=== PATIENT | female | born 1955 | race Caucasian/White ===

== ENCOUNTER → 2018-05-07 07:09 | Outpatient (CLI) | payer OTHER, SELFPAY ==
[2018-05-07 07:49] LABS: ALB/GLOB Ratio 0.7 RATIO (0.9-2.4); AST(SGOT) 20 U/L (15-37); Alanine Aminotransfer ALT/SGPT 24 U/L (13-56); Albumin, Serum 3.2 g/dL (3.2-5.0); Alkaline Phosphatase 80 U/L (45-117); Anion Gap 8 (5-15); BUN 17 mg/dL (7-18); BUN/Creat Ratio 16.5 RATIO (10-20); Chloride 104 mmol/L (98-107); Cholesterol 158 mg/dL (200); Creatinine, Serum 1.03 mg/dL (0.55-1.02); EST Glomerular Filtration Rate 57 mL/min (>60); Est Glom Filt Rate - Afr Amer 69 mL/min (>60); Globulin 4.5 g/dL (2.2-4.2); Glucose 152 mg/dL (74-106); High Density Lipoprotein 54 mg/dL; Protein, Total 7.7 g/dL (6.4-8.2); Sodium Level 141 mmol/L (136-145); Triglycerides 136 mg/dL; Very Low Density Lipoprotein 27 mg/dL (5-40)
== END ==
PROVIDERS: Family Provider Preventive Medicine Occupational Medicine; PCP Preventive Medicine Occupational Medicine; Visit Provider Nurse Practitioner Family
DX: I10 Essential (primary) hypertension (principal)
CPT/HCPCS: 36415; 80053; 80061

== ENCOUNTER 2020-09-18 12:47 | Inpatient (IN) | payer MEDICARE, OTHER, SELFPAY ==
[2020-09-18] VITALS (20 sets, daily range): BP systolic 124–152; BP diastolic 52–95; PULSE 65–82; RESP 15–20; TEMP 36.3–37.1; O2SAT 90–95; BMI 43.8; BMI 43.0
--- NOTE | 2020-09-18 13:01 | RAD_ITS ---
STUDY: X-RAY CHEST REASON FOR EXAM: Female, 65 years old. COUGH, AND SOB X2 WEEKS. PRODUCTIVE WITH YELLOW. DENIES PAIN OR DISCOMFORT. TECHNIQUE: Single AP portable view of the chest. COMPARISON: None. FINDINGS: The lungs are clear and expanded. There is no demonstrated pleural abnormality. Normal size heart. Normal mediastinum and kristina. Normal visualized pulmonary arteries. Normal visualized aortic arch and descending thoracic aorta. Normal visualized thoracic spine. Normal visualized ribs, clavicles, and shoulders. There is no demonstrated abnormality of the visualized soft tissue structures of the upper abdomen. RAD/Chest 1 View (Portable) IMPRESSION: Normal x-ray examination of the chest. Electronically Signed: Jordin Luo MD at 14:08 EST Tel , Service support ,
--- NOTE | 2020-09-18 13:01 | EKG12_ITS ---
Test Reason : SOB Blood Pressure : / mmHG Vent. Rate : 070 BPM Atrial Rate : 070 BPM P-R Int : 156 ms QRS Dur : 076 ms QT Int : 394 ms P-R-T Axes : 045 -09 064 degrees QTc Int : 425 ms Normal sinus rhythm Normal ECG Confirmed by BRENDAN HAGEN, DOMINGO ([id number]), editor farm journal LINDA ARGUETA ([id number]) on 09/24/2020 9:23:13 AM Referred By: LIT Confirmed By:JYOTI CARDONA MD
--- NOTE | 2020-09-18 13:10 | ED.VIS.GEN ---
History of Present Illness Chief Complaint: Shortness of Breath Informant: Patient Narrative: Patient is a 65-year-old female who presents to the emergency department for cough, shortness of breath. Her symptoms have been present over the past 2 weeks. She feels like it is progressively getting worse. She does have a pulse oximeter at home and states has been from 84 to 91% on room air. She does not wear oxygen at baseline. She does have history of asthma and has been using her inhalers. She denies any history of COPD or CHF. She denies fevers or chills. No known sick contacts. Her lives with her and has not had any symptoms. She denies any leg swelling or calf pain. No history of heart attacks or DVT/PE. No vomiting or diarrhea. Her cough has been productive of yellow sputum. She denies a smoking history. No chest pain associated with this. Past Medical History - Allergies and Home Meds Allergies/Adverse Reactions: Allergies DUST MITES Allergy (Uncoded 09/18/20 12:50) Other Primary Care Physician: Efra Ramirez DO [COURTESY STAFF PHYSICIAN] - Prior records reviewed: Yes Past Medical History: - - Asthma, hypertension, borderline diabetic Surgical History: noncontributory Smoking Status: Never smoker Review of Systems All systems negative except as indicated General: Denies: Chills, Fever, Sweats Eyes: Denies: Visual changes - bilaterally, Diplopia ENT: Denies: Rhinorrhea, Sore throat Cardiovascular: Denies: Chest pain, Palpitations Respiratory: Reports: Dyspnea, Cough, Sputum, Dyspnea on exertion, Paroxysmal nocturnal dyspnea Gastrointestinal: Denies: Abdominal pain, Nausea, Vomiting, Diarrhea, Melena, Hematochezia Genitourinary: Denies: Dysuria, Hematuria, Frequency Musculoskeletal: Denies: Back pain, Extremity Pain Skin: Denies: Rash, Wounds Neurological: Denies: Headache, Weakness, Numbness Physical Exam Vital Signs/Narrative: Vital Signs Temp Pulse Resp BP Pulse Ox 09/18/20 12:50 97.3 F L 71 20 H 150/88 H 90 09/18/20 12:47 97.3 F L 71 20 H 150/88 H 90 General: Well nourished, Well developed, No Acute Distress Head: Normocephalic, Atraumatic Eyes: Perrl, EOMI ENT: Moist mucous membranes, No rhinorrhea Neck: Supple, Nontender Cardiovascular: Regular rate, Regular rhythm, No murmurs Respiratory: No distress, Chest nontender, Rhonchi, Wheezing. Negative for: Retractions Abdomen: Soft, Nontender, Nondistended, Normal bowel sounds Back: Nontender, Normal Inspection Extremities: Nontender, No edema. Negative for: Calf Tenderness Skin: Normal color, No rash Neurological: Alert, Oriented x3, Normal Strength, Normal Sensation Psychological: Normal affect, Normal Mood Diagnostic/Tx/Re-eval Chest X-Ray - ED: - - Single view portable chest x-ray interpreted by myself. No evidence of consolidation. No pleural effusions. Normal cardiac silhouette. Normal mediastinum. No acute cardiopulmonary process. Agree with radiologist interpretation. - EKG Initial EKG Interpretation: - - Rate of 70 bpm and normal sinus rhythm. Normal intervals. Normal axis. No ST elevations or depressions. No T wave abnormalities. - Medical Decision Making Patient presents to the emergency department for shortness of breath and cough. Upon arrival to the emergency department she is satting 90% on room air and has increased work of breathing. She is able to catch her breath when sitting down. She is requiring supplemental oxygen. Basic lab work, chest x-ray, coronavirus swab and EKG being obtained. Patient's work-up did not reveal any significant acute abnormality. BNP within normal limits. Negative troponin. No significant elevation of white blood cell count. Covid antigen test was negative. X-ray was negative. CT scan was performed which did not show any signs of PE or consolidation. We did trial a DuoNeb breathing treatment but even despite after this she was still satting 90% on 3 L of supplemental oxygen just sitting in bed. She has been desaturating down to the 84s I do believe she will require further evaluation and management. Initially hold off on giving steroids as she is a diabetic. Will defer to hospitalist for this. Will trial a dose of magnesium as she does have wheezing and will try to break this. Patient otherwise has been stable throughout ED stay. She is agreeable staying in the hospital at this time. ED Disposition - Plan for ED Patient: Disposition: Acute Care [facility] Diagnosis: Wheezing, Hypoxia, Bronchitis Referrals: Efra Ramirez DO [COURTESY STAFF PHYSICIAN] -
[2020-09-18 13:31] LABS: Basophil# 0.05 X10^3/uL; Basophil% 0.6 % (0-1); Eosinophil# 0.79 X10^3/uL; Hematocrit 49.9 % (37-47); Lymphocyte % 13.7 % (19-41); Mean Corp Hgb Conc 32.1 g/dL (32-36); Mean Corpuscular Hgb 30.1 pg (27.0-32.0); Mean Corpuscular Volume 93.8 fL (81-99); Mean Platelet Vol. 10.5 fl (6.2-12.0); Monocyte# 0.72 X10^3/uL; Monocyte% 8.2 % (0-10); NRBC Flagged by Analyzer 0 % (0-5); Neutrophil # 5.97 X10^3/uL (2.7-7.7); Platelet Count 296 K/mm3 (150-450); RBC Distribution Width CV 13.6 % (11.6-14.6); RBC Distribution Width SD 46.6 fl (35.1-43.9); Red Blood Count 5.32 M/mm3 (4.2-5.4); White Blood Count 8.8 K/mm3 (4.4-11.0)
[2020-09-18 13:48] LABS: ALB/GLOB Ratio 0.6 RATIO (0.9-2.4); AST(SGOT) 17 U/L (15-37); Alanine Aminotransfer ALT/SGPT 21 U/L (13-56); Albumin, Serum 3.4 g/dL (3.2-5.0); Alkaline Phosphatase 86 U/L (45-117); Anion Gap 6 (5-15); BUN 15 mg/dL (7-18); BUN/Creat Ratio 14.6 RATIO (10-20); Calcium,Total 8.7 mg/dL (8.5-10.1); Chloride 105 mmol/L (98-107); Creatinine, Serum 1.03 mg/dL (0.55-1.02); EST Glomerular Filtration Rate 57 mL/min (>60); Est Glom Filt Rate - Afr Amer 69 mL/min (>60); Estimated Creatinine Clearance 51.54 ml/min; Globulin 5.3 g/dL (2.2-4.2); Glucose 111 mg/dL (74-106); Potassium 3.8 mmol/L (3.5-5.1); Protein, Total 8.7 g/dL (6.4-8.2); Sodium Level 141 mmol/L (136-145)
[2020-09-18 13:50] LABS: BNP,B-Type NATRIURETIC PEPTIDE 12.7 pg/mL (0-100)
[2020-09-18 14:10] LABS: Lactic Acid 1.4 mmol/L (0.4-1.9)
--- NOTE | 2020-09-18 15:02 | CT_ITS ---
STUDY: CTA CHEST REASON FOR EXAM: Female, 65 years old. SOB WITH COUGH X 2 WEEKS. HX OF HTN RADIATION DOSAGE (If Supplied By Facility): CTDIvol = ( 18.57 ) mGy, DLP = ( 573.27 ) mGycm TECHNIQUE: The examination was performed with the intravenous administration of IV 100mL Isovue-370. Post-processing of the angiographic images was performed, with multiplanar reformation and 3D reconstruction. Individualized dose optimization techniques were used for this CT. COMPARISON: None. FINDINGS: Normal enhancement of the main pulmonary artery and right and left pulmonary arteries. Normal enhancement of the bilateral peripheral pulmonary arteries. There is no demonstrated pulmonary embolism. Normal thoracic aorta and visualized great vessels. There is no demonstrated aortic dissection. Normal heart and pericardium. Normal mediastinum. Normal hilar regions. Normal visualized trachea and bronchi. The lungs are well expanded. Mild left apical scarring. Normal pleura. Normal chest wall structures. Normal osseous structures. Normal visualized upper abdomen. CT/CTA Chest W/WO Contrast IMPRESSION: Normal CTA chest examination, without a demonstrated pulmonary embolism or arterial dissection. Electronically Signed: Jordin Luo MD at 15:36 EST Tel , Service support ,
[2020-09-18] MEDS: Ipratropium/Albuterol Sulfate 3 ML AMPUL.NEB INHALATION ×3 (15:50→23:31)
--- NOTE | 2020-09-18 17:03 | PCM.HP.STD ---
Problem List (1) HTN (hypertension) Status: Chronic (2) Depression Status: Chronic (3) Diabetes mellitus Status: Chronic Qualifiers: Diabetes mellitus type: type 2 (4) Wheezing Status: Acute (5) Hypoxia Status: Acute (6) Bronchitis Status: Acute History of Present Illness Date of Admission: 09/18/20 Ms Quiñonez is a 65 year old F with a PMH of Asthma, HTN, Allergies, and DM-2 who has been experiencing about 2 weeks of cough and congestion with hypoxia. She states that she had been having some SOB and was seen by a municipal bond trader at [facility] (pt unable to remember her name) and she was placed on inhalers which have not helped. She got a SpO2 monitor and has been checking day and she reports that her SpO2 during this time period has been 84-91%. Her municipal bond trader is aware of her hypoxemia and told her that her baseline might just be 90-91%. She was placed on inhalers and it sounds like PFT were done but I do not have those available to look at today. She has been SOB mildly. She denies fever, chills, mylagia, change in smell, N/V, diarrhea and states that she is feeling fine otherwise. In the ED her SpO2 is 90% on RA and her sats are stable at 94-96% on 3 L. She does have a Erythrocytosis at baseline and it appears that this is chronic for her. Her Lab work is otherwise unimpressive. A CTA was done and was normal. She has marked wheezing on exam. Her COVID testing was negative. Past Medical History Past Medical History (Chronic Problems): Chronic Problems HTN (hypertension) (Chronic) Depression (Chronic) Diabetes mellitus (Chronic) Allergies DUST MITES Allergy (Uncoded 09/18/20 12:50) Other Home Medications: Ambulatory Orders Medication Instructions Recorded Albuterol IH (ProAir) [Proair Hfa 1 - 2 puff INHALATION Q4H PRN PRN 03/25/15 (SP)Vent Pts] Citalopram [Celexa] 20 mg PO DAILY 03/25/15 Hydrochlorothiazide [Hctz] 25 mg PO DAILY 03/25/15 Hydroxyzine HCl 25 mg PO QHS 03/25/15 Lisinopril [Zestril] 10 mg PO DAILY 03/25/15 Fluticasone Furoate [Arnuity 1 puff INHALATION DAILY 09/18/20 Ellipta] Metformin HCl [Metformin HCl ER] 500 mg PO DAILY 09/18/20 Surgical History: noncontributory Psychiatric History: No pertinent psych hx RN ACUTE CARE History: No pertinent RN ACUTE CARE history Lives: Spouse/ Significant Other Smoking Status: Never smoker Tobacco Use: Non-smoker Alcohol: Rare Drugs: None - *Family History Maternal History Items: No pertinent history Paternal History Items: No pertinent history Review of Systems Constitutional: Denies: Anorexia, Chills, Fever, Night Sweats, Malaise, Weakness, Weight Change, Fatigue Eyes: Denies: Blurred vision, Eyelid Inflammation, Pain, Redness, Vision Change HEENT: Reports: Nasal Congestion, Post Nasal Drip, Sinus Congestion, Sinus Drainage. Denies: Difficulty Hearing, Difficulty Swallowing, Head Aches, Nasal bleeding, Sore Throat Cardiovascular: Denies: Chest Pain, Claudication, Chest Pressure, Chest Tightness, Edema, Heaviness, Light Headedness, Orthopnea, Syncope Respiratory: Reports: Cough, Shortness of Breath, Shortness of breath at rest, Shortness of breath upon exertion, Sputum production, Wheezing. Denies: Hemoptysis, Pleuritic Pain Gastrointestinal: Denies: Abdominal Pain, Constipation, Diarrhea, Dyspepsia, Hematemesis, Hematochezia, Nausea, Melena, Vomiting Genitourinary: Denies: Dysuria, Frequency, Hematuria, Hesitancy, Incontinence, Nocturia Gynecological: Denies: Breast symptoms, Vaginal bleeding Musculoskeletal: Denies: Back Pain, Joint Pain, Joint stiffness, Joint swelling, Joint Tenderness, Muscle pain, Neck Pain Skin: Denies: Dryness, Jaundice, Lesions, Pruritis, Rash, Skin Changes, Wounds Neurological: Denies: Balance problems, Slurred speech, Confusion, Difficulty swallowing, Focal weakness, Headaches, Incoordination, Numbness, Tingling, Tremor, Seizures Psychiatric: Reports: Depression. Denies: Anxiety Endocrine: Denies: Change in Body Habitus, Heat/ Cold Intolerance, Polydipsia, Polyuria Hematologic/ Lymphatic: Denies: Adenopathy, Anemia, Easy Bruising, Easy Bleeding, Petechiae, Purpura VTE Information - Inpt Only VTE Present on Admission: No VTE Mechan Device Prophylaxis: None VTE Pharm Prophylaxis ordered?: Yes - Physical Exam Vitals/I&O's: Vital Signs Temp Pulse Resp BP Pulse Ox 98.7 F 82 17 131/95 H 95 09/18/20 16:57 09/18/20 16:57 09/18/20 16:57 09/18/20 16:57 09/18/20 16:57 Oxygen Flow Rate (L/min) 2 Oxygen Delivery Method Nasal Cannula Weight: 127.006 kg Body Mass Index (BMI) 43.8 General: Alert, Oriented x3, Cooperative, No apparent distress, Well developed, Well nourished, - - WF sitting in bed and appears comfortable HEENT: Atraumatic, PERRLA, EOMI, Normocephalic, EAC Clear Oral: Moist Mucosa, No Gingival or Mucosal Lesions/ Ulcerations, - - Mallampati 3 Neck: Supple, No JVD, Negative Carotid Bruits, Negative Hepatojugular Reflux, No Nuchal Rigidity, Trachea Midline, Thyroid Normal Size and Texture Lungs: No rhonchi, No rales, Wheezes - diffuse inspiratory and expiratory R >L Cardiovascular: Regular rate, Regular Rhythm, Normal S1, Normal S2, No murmurs, No Ectopic Activity, No rub noted, No Gallop Abdomen: Bowel Sounds Present, Soft, Non Tender, Non-Distended, Obese, No hernias noted Extremities: No clubbing, No cyanosis, No edema, Capillary Refill Less than 3 Seconds, Peripheral Pulses Normal Skin: No rashes, No breakdown Musculoskeletal: No Tenderness to Palpation of Joints or Extremities, No Muscle Wasting, Arthritic Changes Lymphatic: No Cervical, Supraclavicular, or Inguinal Adenopathy Neurological: Cranial nerves II-XII grossly intact, Deep Tendon Reflexes 2+/4 and Symmetrical, Neuro grossly intact, Motor Exam 5/5 strength throughout, Muscle tone normal, Coordination normal Psych/Mental Status: Normal Affect, Appropriate Microbiology Past 72 Hours 09/18/20 13:36 Mucosa - Nose SARS-CoV-2 Antigen (Rapid) - Final Laboratory Results 09/18/20 13:20: WBC 8.8, RBC 5.32, Hgb 16.0 H, Hct 49.9 H, MCV 93.8, MCH 30.1, MCHC 32.1, RDW Std Deviation 46.6 H, RDW Coeff of Najma 13.6, Plt Count 296, MPV 10.5, Immature Gran % (Auto) 0.500, Neut % (Auto) 68.0, Lymph % (Auto) 13.7 L, [place] % (Auto) 8.2, Eos % (Auto) 9.0 H, Baso % (Auto) 0.6, Absolute Neuts (auto) 6.0, Absolute Lymphs (auto) 1.20, Nucleated RBC % 0 09/18/20 13:20: Sodium 141, Potassium 3.8, Chloride 105, Carbon Dioxide 30.0, Anion Gap 6, BUN 15, Creatinine 1.03 H, Estim Creat Clear Calc 51.54, Est GFR (MDRD) Af Amer 69, Est GFR (MDRD) Non-Af 57 L, BUN/Creatinine Ratio 14.6, Glucose 111 H, Calcium 8.7, Total Bilirubin 0.50, AST 17, ALT 21, Alkaline Phosphatase 86, Troponin I < 0.015, Total Protein 8.7 H, Albumin 3.4, Globulin 5.3 H, Albumin/Globulin Ratio 0.6 L 09/18/20 13:20: Lactic Acid 1.4 09/18/20 13:20: B-Natriuretic Peptide 12.7 09/18/20 14:22: COVID-19 ([facility]IA[facility]) Pending Current Medications Magnesium Sulfate 2 gm/ Sodium (Chloride) 104 mls @ 52 mls/hr IV X1 ONE Stop: 09/18/20 18:07 Last Admin: 09/18/20 16:49 Dose: 52 mls/hr Documented by: Assessment/Plan All Active Problems Wheezing (Acute) Hypoxia (Acute) Bronchitis (Acute) Acute Hypoxic Respiratory Failure etiology unknown -? if some chronic component to this with her erythrocytosis -supplemental O2 as needed to keep SpO2 > 92% -check influenza and viral respiratory panel -start solumedrol -nebs -mucinex -sputum cx if able -Azithro and CTX for now -cont home inhalers -consider ECHO for shunt if doesn't improve -BNP WNL -consider pulm consult Erythrocytosis -suspect this is her baseline and pt has chronic hypoxia -if SpO2 does not improve may need to assess further DM-2 -on metformin at home -hold -insulin SSI with meals -BGT HTN -cont home HCTZ and Lisinopril Depression -celexa MO -recommend wgt loss DVT Prophylaxis -Lovenox Code status -Full Inpatient E&M: 46169 Init Hosp L3
--- NOTE | 2020-09-18 18:09 | PCS.PANDOC ---
PANDEMIC DOCUMENTATION INITIATED: Date: 09/18/20 Time: 6440
[2020-09-18] MEDS: hydrOXYzine PAM 25 MG Capsule PO (20:55)
[2020-09-18] MEDS: guaiFENesin 600 MG Tablet PO (20:55)
[2020-09-19] VITALS (15 sets, daily range): BP systolic 149–159; BP diastolic 65–84; PULSE 70–89; RESP 16–22; TEMP 36.6–36.9; O2SAT 88–95
[2020-09-19] MEDS: Ipratropium/Albuterol Sulfate 3 ML AMPUL.NEB INHALATION ×4 (03:33→19:35)
[2020-09-19 06:30] LABS: Bedside Glucose 189 mg/dL (70-110)
[2020-09-19] MEDS: Insulin Lispro 100 UNIT/ML INSULN.PEN SC ×3 (06:33→16:39)
[2020-09-19 06:42] LABS: Absolute Lymphocyte Count 0.67 X10^3/uL (0.83-4.51); Absolute Neutrophil Count 7.6 X10^3/uL (2.0-7.7); Basophil# 0.02 X10^3/uL; Basophil% 0.2 % (0-1); Eosinophil# 0.01 X10^3/uL; Eosinophils% 0.1 % (0-5); Hemoglobin 14.3 g/dL (12.0-15.0); Lymphocyte # 0.67 X10^3/ul (4.0); Lymphocyte % 7.8 % (19-41); Mean Corp Hgb Conc 31.8 g/dL (32-36); Mean Corpuscular Hgb 29.5 pg (27.0-32.0); Mean Corpuscular Volume 92.8 fL (81-99); Mean Platelet Vol. 10.8 fl (6.2-12.0); Monocyte# 0.23 X10^3/uL; Monocyte% 2.7 % (0-10); NRBC Flagged by Analyzer 0 % (0-5); Neutrophil # 7.61 X10^3/uL (2.7-7.7); Neutrophil % 88.8 % (47-70); Platelet Count 290 K/mm3 (150-450); RBC Distribution Width CV 13.3 % (11.6-14.6); RBC Distribution Width SD 45.6 fl (35.1-43.9); Red Blood Count 4.85 M/mm3 (4.2-5.4); White Blood Count 8.6 K/mm3 (4.4-11.0)
[2020-09-19 07:13] LABS: Anion Gap 7 (5-15); BUN 13 mg/dL (7-18); BUN/Creat Ratio 14.8 RATIO (10-20); Calcium,Total 8.5 mg/dL (8.5-10.1); Chloride 107 mmol/L (98-107); Creatinine, Serum 0.88 mg/dL (0.55-1.02); EST Glomerular Filtration Rate 68 mL/min (>60); Est Glom Filt Rate - Afr Amer 83 mL/min (>60); Estimated Creatinine Clearance 60.33 ml/min; Glucose 166 mg/dL (74-106); Magnesium 2.4 mg/dL (1.6-2.6); Phosphorus 3.5 mg/dL (2.5-4.9); Potassium 4.1 mmol/L (3.5-5.1); Sodium Level 141 mmol/L (136-145); Thyroid Stim Hormone (TSH) 0.73 uIU/mL (0.358-3.74)
[2020-09-19] MEDS: Lisinopril 10 MG Tablet PO (10:29)
[2020-09-19] MEDS: Citalopram 20 MG Tablet PO (10:29)
[2020-09-19] MEDS: Enoxaparin 40 MG/0.4 ML Syringe SC (10:29)
[2020-09-19] MEDS: hydroCHLOROthiazide 25 MG Tablet PO (10:29)
[2020-09-19] MEDS: guaiFENesin 600 MG Tablet PO ×2 (10:29→21:47)
[2020-09-19] MEDS: Azithromycin 250 MG Tablet 500 MG PO (10:53)
[2020-09-19 11:45] LABS: Bedside Glucose 263 mg/dL (70-110)
--- NOTE | 2020-09-19 13:19 | PCM.PN.HOSP ---
Patient Problems: Active and Suspected Problems Wheezing (Acute) Hypoxia (Acute) Bronchitis (Acute) Reason for Visit: SOB Subjective: Breathing improving, however she is still markedly SOB with exertion. She c/o wheezing and nonproductive cough. No fever/chills. No LE edema. No CP. Vitals/I&O's: Vital Signs Temp Pulse Resp BP Pulse Ox 98.4 F 89 16 159/65 H 94 09/19/20 10:25 09/19/20 10:25 09/19/20 10:25 09/19/20 10:25 09/19/20 10:25 Oxygen Flow Rate (L/min) 4 Oxygen Delivery Method Nasal Cannula Weight: 274 lb 7.608 oz Body Mass Index (BMI) 43.0 Intake and Output for Last 24 Hours 09/17/20 09/18/20 09/19/20 23:59 23:59 23:59 Intake Total 409 / 509 560 / 560 Balance 409 / 509 560 / 560 General: Alert, Oriented x3, Cooperative HEENT: Atraumatic, PERRLA, EOMI, Normocephalic Neck: Supple, No JVD, Negative Carotid Bruits Lungs: Diminished, Wheezes Cardiovascular: Regular rate, No murmurs Abdomen: Bowel Sounds Present, Soft, Non Tender Extremities: No edema, Capillary Refill Less than 3 Seconds Skin: No rashes, No breakdown Musculoskeletal: No Tenderness to Palpation of Joints or Extremities Neurological: Cranial nerves II-XII grossly intact Psych/Mental Status: Normal Affect, Appropriate, Alert and oriented to time, place, person, mood and affect Microbiology Past 72 Hours 09/19/20 08:45 Sputum, Expectorated/Coughed Gram Stain - Final 09/18/20 19:27 Interface Orders Respiratory Panel (PCR) - Final 09/18/20 19:27 Mucosa - Nasopharyngeal Influenza Types A,B Direct FA (YEISON) - Final 09/18/20 18:45 Urine, Clean Catch Legionella Antigen - Final 09/18/20 18:45 Urine, Clean Catch Streptococcus pneumoniae Antigen (M - Final 09/18/20 13:36 Mucosa - Nose SARS-CoV-2 Antigen (Rapid) - Final Laboratory Results 09/18/20 13:20: WBC 8.8, RBC 5.32, Hgb 16.0 H, Hct 49.9 H, MCV 93.8, MCH 30.1, MCHC 32.1, RDW Std Deviation 46.6 H, RDW Coeff of Najma 13.6, Plt Count 296, MPV 10.5, Immature Gran % (Auto) 0.500, Neut % (Auto) 68.0, Lymph % (Auto) 13.7 L, [place] % (Auto) 8.2, Eos % (Auto) 9.0 H, Baso % (Auto) 0.6, Absolute Neuts (auto) 6.0, Absolute Lymphs (auto) 1.20, Nucleated RBC % 0 09/18/20 13:20: Sodium 141, Potassium 3.8, Chloride 105, Carbon Dioxide 30.0, Anion Gap 6, BUN 15, Creatinine 1.03 H, Estim Creat Clear Calc 51.54, Est GFR (MDRD) Af Amer 69, Est GFR (MDRD) Non-Af 57 L, BUN/Creatinine Ratio 14.6, Glucose 111 H, Calcium 8.7, Total Bilirubin 0.50, AST 17, ALT 21, Alkaline Phosphatase 86, Troponin I < 0.015, Total Protein 8.7 H, Albumin 3.4, Globulin 5.3 H, Albumin/Globulin Ratio 0.6 L 09/18/20 13:20: Lactic Acid 1.4 09/18/20 13:20: B-Natriuretic Peptide 12.7 09/18/20 14:22: COVID-19 ([facility]) Not Detected 09/19/20 05:35: WBC 8.6, RBC 4.85, Hgb 14.3, Hct 45.0, MCV 92.8, MCH 29.5, MCHC 31.8 L, RDW Std Deviation 45.6 H, RDW Coeff of Najma 13.3, Plt Count 290, MPV 10.8, Immature Gran % (Auto) 0.400, Neut % (Auto) 88.8 H, Lymph % (Auto) 7.8 L, [place] % (Auto) 2.7, Eos % (Auto) 0.1, Baso % (Auto) 0.2, Absolute Neuts (auto) 7.6, Absolute Lymphs (auto) 0.67 L, Nucleated RBC % 0 09/19/20 05:35: Sodium 141, Potassium 4.1, Chloride 107, Carbon Dioxide 27.0, Anion Gap 7, BUN 13, Creatinine 0.88, Estim Creat Clear Calc 60.33, Est GFR (MDRD) Af Amer 83, Est GFR (MDRD) Non-Af 68, BUN/Creatinine Ratio 14.8, Glucose 166 H, Calcium 8.5, Phosphorus 3.5, Magnesium 2.4, TSH 0.73 09/19/20 06:27: POC Glucose 189 H 09/19/20 11:25: POC Glucose 263 H Current Medications Acetaminophen (Acetaminophen 325 Mg Tablet) 650 mg PO Q6H PRN PRN PRN Reason: Pain Score 1-10/Temp > 100.7 F Al Hydroxide/Mg Hydroxide (Mag Hydrox/Al Hydrox/Simeth 30 Ml Udc) 30 ml PO Q6H PRN PRN PRN Reason: Gastric Burning Albuterol Sulfate (Albuterol 2.5 Mg/3 Ml Vial.Neb.) 2.5 mg INHALATION Q2H PRN PRN PRN Reason: SOB/Wheezing Albuterol/Ipratropium (Ipratropium/Albuterol Sulfate 3 Ml Ampul.Neb) 3 ml INHALATION Q6HWA.RT NIRAV Azithromycin (Azithromycin 250 Mg Tablet) 500 mg PO Q24 [facility] Last Admin: 09/19/20 10:53 Dose: 500 mg Documented by: Bisacodyl (Bisacodyl 5 Mg Tablet) 5 mg PO DAILY PRN PRN PRN Reason: Constipation Citalopram Hydrobromide (Citalopram 20 Mg Tablet) 20 mg PO DAILY [facility] Last Admin: 09/19/20 10:29 Dose: 20 mg Documented by: Enoxaparin Sodium (Enoxaparin 40 Mg/0.4 Ml Syringe) 40 mg SC DAILY [facility] Last Admin: 09/19/20 10:29 Dose: 40 mg Documented by: Guaifenesin (Guaifenesin 600 Mg Tablet) 600 mg PO BID [facility] Last Admin: 09/19/20 10:29 Dose: 600 mg Documented by: Guaifenesin (Guaifenesin Dm 10 Ml Udc) 10 ml PO Q6H PRN PRN PRN Reason: COUGH Hydrochlorothiazide (Hydrochlorothiazide 25 Mg Tablet) 25 mg PO DAILY [facility] Last Admin: 09/19/20 10:29 Dose: 25 mg Documented by: Hydroxyzine Pamoate (Hydroxyzine Luz Elena 25 Mg Capsule) 25 mg PO QHS [facility] Last Admin: 09/18/20 20:55 Dose: 25 mg Documented by: Sodium Chloride () 250 mls @ 15 mls/hr IV .[id number] PRN PRN Reason: Saline Flush Sodium Chloride () 250 mls @ 15 mls/hr IV .[id number] PRN PRN Reason: Additional IVPB Infusion Insulin Human Lispro (Insulin Lispro 100 Unit/Ml Insuln.Pen) 0 unit SC TIDAC [facility]; Protocol Last Admin: 09/19/20 11:26 Dose: 3 u Documented by: Lisinopril (Lisinopril 10 Mg Tablet) 10 mg PO DAILY [facility] Last Admin: 09/19/20 10:29 Dose: 10 mg Documented by: Melatonin (Melatonin 3 Mg Tablet) 3 mg PO QHS PRN PRN PRN Reason: INSOMNIA Methylprednisolone (Methylprednisolone 40 Mg/Ml Vial) 40 mg IV Q8 [facility] Sodium Chloride (0.9% Saline Lock 10 Ml Syringe) 10 - 40 ml IV UD PRN PRN Reason: SALINE FLUSH STROKE Vital Signs/Narrative: Vital Signs Temp Pulse Resp BP Pulse Ox 09/19/20 10:25 98.4 F 89 16 159/65 H 94 Medical Necessity - Tobacco Use Smoking Status: Never smoker Tobacco Use: Non-smoker Assessment/Plan All Active Problems Wheezing (Acute) Hypoxia (Acute) Bronchitis (Acute) 1. Acute hypoxic resp failure 2/2 COPD / asthma exacerbation - improving. ongoing wheezing and SOB with exertion. Covid/Viral panel negative. Urine antigens negative. Blood cx pending. Continue steroids, aerosols, azithromycin. Wean o2 as tolerated - no o2 use at baseline. Follows [facility] pulmonology. Afebrile and no leukocytosis. 2. Dmt2 with morbid obesity - metformin held, continue sliding scale insulin. Wing Commander consult. 3. HTN - stable 4. Anx/Dep- celexa, hydroxyzine. DVT ppx: lovenox DC planning: likely home tomorrow, walking pulse ox prior to dc. This patient was seen by Barron Degroot PA-C under the supervision of Doctor Webb.
[2020-09-19] MEDS: 0.9% Saline Lock 10 ML Syringe IV (14:25)
--- NOTE | 2020-09-19 14:31 | CASEMGMT ---
Face to Face with patient and spouse Marc for initial transition planning/care coordination assessment. RN RIA introduced self and [facility], voices understanding. Care providers, pharmacy, and demographics verified. PCP: Dr. Euceda Specialists: Dr. Santana ([facility] flying ii instructor). Pt states she last saw approximately 6 months ago and is due for a visit. States she will call to schedule an appointment. Preferred Pharmacy: [facility] Insurance: [facility] A/B, AAR Prescription Benefit: Yes Living Will/HPOA: Yes/Yes, HPOA daughter Kendrick. Copies are not in pt's medical record. Asked pt/spouse to bring in to scan. Spouse states they are with the commercial litigation attorney. LNOK: spouse Marc, oldest daughter Kendrick. Has 3 other daughters (4 total) that live within the area. Living Arrangements: Pt lives in a two story home with her spouse Marc. There are no steps to enter but there are steps to the second floor. She is unsure how many. Pt's bedroom is on the second floor. There is a full bath on the first and second floor. Pt states she can stay on the first floor if needed. Pt states she typically has not had difficulty with the steps but for the past two weeks has had increased SOB with the stairs requiring rest and her rescue inhaler. ADLS: Pt states she is independent with ADLs and insight leader. States her is able to assist as needed and states he has been going to the basement to help with laundry recently. Transportation: Pt and her spouse both drive. DME: Pt has a raised toilet seat and grab bars in the shower and tub. Pt also has but is not currently using a shower seat, BSC, standard walker, and rollator. Pt states her does have a glucometer and supplies that she could use to check her blood sugar. Pt states she was recently diagnosed with DM type II and is taking metformin. Pt states she has not been checking her sugar regularly and was not provided any instruction that she can recall from her PCP's office on monitoring. Pt states she has MDIs and uses a spacer but does not wear home O2 or have a nebulizer machine. Pt does have a pulse oximeter that she does use intermittently at home. SNF/HHC: Pt denies any previous SNF or HHC need. Plan: Pt plans to return home at discharge with the support of her . Pt interested in a nebulizer machine if needed. Pt denies any preference in DME provider. Will continue to monitor for home O2 and nebulizer need at discharge. Cata Mckeon RN CM
[2020-09-19 17:00] LABS: Bedside Glucose 165 mg/dL (70-110)
[2020-09-19] MEDS: hydrOXYzine PAM 25 MG Capsule PO (21:47)
[2020-09-20] VITALS (19 sets, daily range): BP systolic 123–165; BP diastolic 68–90; PULSE 64–149; RESP 16–20; TEMP 36.1–36.8; O2SAT 88–95
[2020-09-20 05:46] LABS: Anion Gap 6 (5-15); BUN 21 mg/dL (7-18); BUN/Creat Ratio 22.2 RATIO (10-20); Calcium,Total 8.6 mg/dL (8.5-10.1); Chloride 105 mmol/L (98-107); Creatinine, Serum 0.95 mg/dL (0.55-1.02); EST Glomerular Filtration Rate 63 mL/min (>60); Est Glom Filt Rate - Afr Amer 76 mL/min (>60); Estimated Creatinine Clearance 55.88 ml/min; Glucose 179 mg/dL (74-106); Potassium 4.3 mmol/L (3.5-5.1); Sodium Level 137 mmol/L (136-145)
[2020-09-20] MEDS: Insulin Lispro 100 UNIT/ML INSULN.PEN SC ×3 (06:45→16:19)
[2020-09-20] MEDS: Ipratropium/Albuterol Sulfate 3 ML AMPUL.NEB INHALATION ×3 (06:59→18:57)
[2020-09-20 07:16] LABS: Bedside Glucose 173 mg/dL (70-110)
[2020-09-20] MEDS: Lisinopril 10 MG Tablet PO (10:03)
[2020-09-20] MEDS: Enoxaparin 40 MG/0.4 ML Syringe SC (10:03)
[2020-09-20] MEDS: guaiFENesin 600 MG Tablet PO ×2 (10:03→21:48)
[2020-09-20] MEDS: Citalopram 20 MG Tablet PO (10:03)
[2020-09-20] MEDS: Azithromycin 250 MG Tablet 500 MG PO (10:03)
[2020-09-20] MEDS: hydroCHLOROthiazide 25 MG Tablet PO (10:03)
--- NOTE | 2020-09-20 12:13 | PN_ITS ---
Patient Problems: Active and Suspected Problems Wheezing (Acute) Hypoxia (Acute) Bronchitis (Acute) Subjective: Doing well, still requiring oxygen 4 L nasal cannula Vitals/I&O's: Vital Signs Temp Pulse Resp BP Pulse Ox 98.2 F 73 18 126/70 H 94 09/20/20 09:55 09/20/20 10:58 09/20/20 09:55 09/20/20 09:55 09/20/20 09:55 Oxygen Flow Rate (L/min) [ 4 AMBULATION with Oxygen] Oxygen Flow Rate (L/min) 4 Oxygen Delivery Method Nasal Cannula Weight: 274 lb 7.608 oz Body Mass Index (BMI) 43.0 Intake and Output for Last 24 Hours 09/18/20 09/19/20 09/20/20 23:59 23:59 23:59 Intake Total 409 / 509 1040 / 1040 Balance 409 / 509 1040 / 1040 General: Alert, Oriented x3, Cooperative, No apparent distress HEENT: Atraumatic, PERRLA, EOMI, Normocephalic Oral: Moist Mucosa Neck: Supple, No JVD Lungs: No rhonchi, No rales, Diminished, Wheezes, - - Poor air movement Cardiovascular: Regular rate, Regular Rhythm, Normal S1, Normal S2, No murmurs Abdomen: Soft, Non Tender, Non-Distended, No Hepato-splenomegaly Extremities: No edema, Capillary Refill Less than 3 Seconds Skin: No rashes, No breakdown Neurological: Neuro grossly intact, Sensory exam intact to light touch and pain Psych/Mental Status: Normal Affect, Appropriate Microbiology Past 72 Hours 09/19/20 08:45 Sputum, Expectorated/Coughed Gram Stain - Final 09/19/20 08:45 Sputum, Expectorated/Coughed Respiratory Culture - Preliminary Appears to be normal respiratory jenelle. Further studies to follow. 09/18/20 19:27 Interface Orders Respiratory Panel (PCR) - Final 09/18/20 19:27 Mucosa - Nasopharyngeal Influenza Types A,B Direct FA (YEISON) - Final 09/18/20 18:45 Urine, Clean Catch Legionella Antigen - Final 09/18/20 18:45 Urine, Clean Catch Streptococcus pneumoniae Antigen (M - Final 09/18/20 13:36 Mucosa - Nose SARS-CoV-2 Antigen (Rapid) - Final Laboratory Results 09/19/20 16:33: POC Glucose 165 H 09/20/20 05:12: Sodium 137, Potassium 4.3, Chloride 105, Carbon Dioxide 26.0, Anion Gap 6, BUN 21 H, Creatinine 0.95, Estim Creat Clear Calc 55.88, Est GFR (MDRD) Af Amer 76, Est GFR (MDRD) Non-Af 63, BUN/Creatinine Ratio 22.2 H, Glucose 179 H, Calcium 8.6 09/20/20 06:43: POC Glucose 173 H Current Medications Acetaminophen (Acetaminophen 325 Mg Tablet) 650 mg PO Q6H PRN PRN PRN Reason: Pain Score 1-10/Temp > 100.7 F Al Hydroxide/Mg Hydroxide (Mag Hydrox/Al Hydrox/Simeth 30 Ml Udc) 30 ml PO Q6H PRN PRN PRN Reason: Gastric Burning Albuterol Sulfate (Albuterol 2.5 Mg/3 Ml Vial.Neb.) 2.5 mg INHALATION Q2H PRN PRN PRN Reason: SOB/Wheezing Albuterol/Ipratropium (Ipratropium/Albuterol Sulfate 3 Ml Ampul.Neb) 3 ml INHALATION Q6HWA.RT [facility] Last Admin: 09/20/20 06:59 Dose: 3 ml Documented by: Azithromycin (Azithromycin 250 Mg Tablet) 500 mg PO Q24 [facility] Last Admin: 09/20/20 10:03 Dose: 500 mg Documented by: Bisacodyl (Bisacodyl 5 Mg Tablet) 5 mg PO DAILY PRN PRN PRN Reason: Constipation Citalopram Hydrobromide (Citalopram 20 Mg Tablet) 20 mg PO DAILY [facility] Last Admin: 09/20/20 10:03 Dose: 20 mg Documented by: Enoxaparin Sodium (Enoxaparin 40 Mg/0.4 Ml Syringe) 40 mg SC DAILY [facility] Last Admin: 09/20/20 10:03 Dose: 40 mg Documented by: Guaifenesin (Guaifenesin 600 Mg Tablet) 600 mg PO BID [facility] Last Admin: 09/20/20 10:03 Dose: 600 mg Documented by: Guaifenesin (Guaifenesin Dm 10 Ml Udc) 10 ml PO Q6H PRN PRN PRN Reason: COUGH Hydrochlorothiazide (Hydrochlorothiazide 25 Mg Tablet) 25 mg PO DAILY [facility] Last Admin: 09/20/20 10:03 Dose: 25 mg Documented by: Hydroxyzine Pamoate (Hydroxyzine Luz Elena 25 Mg Capsule) 25 mg PO QHS [facility] Last Admin: 09/19/20 21:47 Dose: 25 mg Documented by: Sodium Chloride () 250 mls @ 15 mls/hr IV .[id number] PRN PRN Reason: Saline Flush Sodium Chloride () 250 mls @ 15 mls/hr IV .[id number] PRN PRN Reason: Additional IVPB Infusion Insulin Human Lispro (Insulin Lispro 100 Unit/Ml Insuln.Pen) 0 unit SC TIDAC [facility]; Protocol Last Admin: 09/20/20 06:45 Dose: 1 u Documented by: Lisinopril (Lisinopril 10 Mg Tablet) 10 mg PO DAILY [facility] Last Admin: 09/20/20 10:03 Dose: 10 mg Documented by: Melatonin (Melatonin 3 Mg Tablet) 3 mg PO QHS PRN PRN PRN Reason: INSOMNIA Methylprednisolone (Methylprednisolone 40 Mg/Ml Vial) 40 mg IV Q8 [facility] Last Admin: 09/20/20 06:47 Dose: 40 mg Documented by: Sodium Chloride (0.9% Saline Lock 10 Ml Syringe) 10 - 40 ml IV UD PRN PRN Reason: SALINE FLUSH Last Admin: 09/19/20 14:25 Dose: 10 ml Documented by: STROKE Vital Signs/Narrative: Vital Signs Temp Pulse Resp BP Pulse Ox 09/20/20 10:58 73 09/20/20 09:55 98.2 F 76 18 126/70 H 94 Medical Necessity - Tobacco Use Smoking Status: Never smoker Tobacco Use: Non-smoker Assessment/Plan All Active Problems Wheezing (Acute) Hypoxia (Acute) Bronchitis (Acute) 1. Acute hypoxic respiratory failure secondary to asthma exacerbation with possible bronchitis -She is improving, will continue with her inhalers as well as azithromycin -Continue with steroids -Covid and influenza negative -Still with some wheezing and 4 L on oxygen, she would prefer to stay a day and see how she improves with continue steroids 2. DM 2 -Continue to hold metformin, and continue with sliding scale insulin -We will adjust insulin as necessary, Accu-Cheks AC at bedtime 3. HTN -Blood pressure is stable, can continue with lisinopril and hydrochlorothiazide 4. Anxiety/depression -Stable -Continue with Celexa and hydroxyzine DVT: Lovenox Inpatient E&M: 34210 Subs Hosp L2
[2020-09-20 12:56] LABS: Bedside Glucose 234 mg/dL (70-110)
[2020-09-20] MEDS: 0.9% Saline Lock 10 ML Syringe IV ×4 (14:15→23:16)
[2020-09-20 16:41] LABS: Bedside Glucose 192 mg/dL (70-110)
[2020-09-20] MEDS: hydrOXYzine PAM 25 MG Capsule PO (21:48)
--- NOTE | 2020-09-20 21:53 | EKG12_ITS ---
Test Reason : RHYTHM CHANGE Blood Pressure : / mmHG Vent. Rate : 065 BPM Atrial Rate : 065 BPM P-R Int : 156 ms QRS Dur : 074 ms QT Int : 390 ms P-R-T Axes : 062 -10 055 degrees QTc Int : 405 ms Normal sinus rhythm Normal ECG When compared with ECG of 20-SEP-2020 22:10, MANUAL COMPARISON REQUIRED, DATA IS UNCONFIRMED Confirmed by ZOEY HAGEN, STEPHANIE ([id number]), editor index LINDA ARGUETA ([id number]) on 09/25/2020 9:21:53 AM Referred By: CABRERA Confirmed By:STEPHANIE GREER MD
--- NOTE | 2020-09-20 22:05 | NURSING ---
in to give hs meds pt tele alarm tachy 120-150's. pt denies chest pain or any other symptom. pt reports she is on all her home meds only change is duoneb she had earlier. ekg being done and nurse discharge notified will monitor
--- NOTE | 2020-09-20 22:18 | ECHOD_ITS ---
Reason For Study: ARRHYTHMIA Procedure This was a 2D Doppler, Color Flow transthoracic echocardiogram. The study was technically difficult. Exam performed portable in patient room. Left Ventricle Normal LV size. Left ventricular systolic function is normal. The estimated ejection fraction is 65 %. Normal diastology for age. No regional wall motion abnormalities noted. Right Ventricle Normal RV size. Normal systolic function. Atria Normal left atrium. Normal right atrium. Mitral Valve Normal mitral valve. Tricuspid Valve Normal tricuspid valve. Mild (1+) tricuspid valve insufficiency. Pulmonary artery systolic pressure is 44 mmHg. Aortic Valve Normal aortic valve. Trisinus/trileaflet aortic valve. Pulmonic Valve Normal pulmonic valve. Great Vessels Normal aortic root. The pulmonary artery is normal size. Normal inferior vena cava. Pericardium/Pleural No pericardial effusion. MMode/2D Measurements & Calculations LVIDd: 5.3 cm IVSd: 1.1 cm Ao root diam: 3.7 cm LVIDs: 3.4 cm LVPWd: 1.1 cm RVDd: 4.1 cm FS: 36.9 % LAV(MOD-bp): 46.3 ml LVAd ap4: 30.7 cm2 SV(MOD-sp4): 41.4 ml LAV(MOD-bp) Indexed: 20.0 ml/m2 EDV(MOD-sp4): 91.7 ml LAV(MOD-sp2): 42.1 ml EDV(sp4-el): 99.0 ml LAV(MOD-sp4): 50.6 ml LVAs ap4: 19.6 cm2 ESV(MOD-sp4): 50.3 ml ESV(sp4-el): 50.3 ml EF(MOD-sp4): 45.2 % EF(sp4-el): 49.2 % SV(sp4-el): 48.7 ml LA A4 area: 18.2 cm2 LA dimension(2D): 4.2 cm RA A4 area: 13.9 cm2 Time Measurements MV dec time: 0.22 sec Doppler Measurements & Calculations MV E max frank: 74.5 cm/sec Lat Peak E' Frank: 10.2 cm/sec Med Peak E' Frank: 8.6 cm/sec MV A max frank: 50.9 cm/sec E/E' lat: 7.3 E/E' med: 8.6 MV E/A: 1.5 Ao V2 max: 143.3 cm/sec LV V1 max: 136.5 cm/sec PA V2 max: 116.4 cm/sec Ao max P.2 mmHg LV V1 max P.5 mmHg TR max frank: 317.9 cm/sec TR max P.4 mmHg Interpretation Summary Normal LV size. Left ventricular systolic function is normal. The estimated ejection fraction is 65 %. Pulmonary artery systolic pressure is 44 mmHg. Mild (1+) tricuspid valve insufficiency. Ordering Physician: Raine Umaña Referring Physician: AUSTIN KIM Performed By: Nathalia Contreras, AUGUSTUSCS, RVT
--- NOTE | 2020-09-20 22:19 | PCM.HOSP.N ---
Hospitalist Note Following aerosols patient with elevated HR, EKG with new afib, will change to budesonide from scheduled duonebs, change to therapeutic lovenox, request TSH/mag/ECHO and plan cardizem bolus x 1 now.
[2020-09-20] MEDS: dilTIAZem 25 MG/5 ML Vial 20 MG IV BOLUS ×2 (22:30→23:16)
--- NOTE | 2020-09-20 23:02 | NURSING ---
PT USED BEDSIDE COMMODE WITH RN VOIDED AND RETURNED TO BED. HEART RATE IMPROVED AFTER MEDICATION. PT CONTINUES TO DENY SYMPTOMS. NO CHEST PAIN.
[2020-09-20] MEDS: Enoxaparin 120 MG/0.8 ML Syringe SC (23:16)
[2020-09-21] VITALS (13 sets, daily range): BP systolic 132–150; BP diastolic 69–87; PULSE 61–92; RESP 16–18; TEMP 36.1–36.9; O2SAT 92–94
[2020-09-21] MEDS: dilTIAZem CD 120 MG Capsule PO ×3 (00:36→21:27)
--- NOTE | 2020-09-21 05:45 | EKG12_ITS ---
Test Reason : RHYTHM CHANGE Blood Pressure : / mmHG Vent. Rate : 133 BPM Atrial Rate : 182 BPM P-R Int : 000 ms QRS Dur : 076 ms QT Int : 296 ms P-R-T Axes : 000 -05 105 degrees QTc Int : 440 ms Atrial fibrillation with premature ventricular or aberrantly conducted complexes Nonspecific ST and T wave abnormality Abnormal ECG When compared with ECG of 18-SEP-2020 13:21, MANUAL COMPARISON REQUIRED, DATA IS UNCONFIRMED Confirmed by ZOEY HAGEN, STEPHANIE ([id number]), features editor LINDA ARGUETA ([id number]) on 09/25/2020 9:24:20 AM Referred By: CABRERA Confirmed By:STEPHANIE GREER MD
[2020-09-21] MEDS: Enoxaparin 120 MG/0.8 ML Syringe SC ×2 (06:04→17:15)
[2020-09-21] MEDS: 0.9% Saline Lock 10 ML Syringe IV (06:05)
[2020-09-21] MEDS: Insulin Lispro 100 UNIT/ML INSULN.PEN SC ×4 (06:11→21:25)
[2020-09-21 06:20] LABS: Bedside Glucose 174 mg/dL (70-110)
[2020-09-21 06:54] LABS: Absolute Lymphocyte Count 1.48 X10^3/uL (0.83-4.51); Absolute Neutrophil Count 14.1 X10^3/uL (2.0-7.7); Basophil# 0.02 X10^3/uL; Basophil% 0.1 % (0-1); Hematocrit 46.3 % (37-47); Hemoglobin 15.1 g/dL (12.0-15.0); Lymphocyte # 1.48 X10^3/ul (4.0); Lymphocyte % 8.9 % (19-41); Mean Corp Hgb Conc 32.6 g/dL (32-36); Mean Corpuscular Volume 91.9 fL (81-99); Mean Platelet Vol. 10.4 fl (6.2-12.0); Monocyte# 0.87 X10^3/uL; Monocyte% 5.2 % (0-10); NRBC Flagged by Analyzer 0 % (0-5); Neutrophil # 14.11 X10^3/uL (2.7-7.7); Neutrophil % 85.2 % (47-70); Platelet Count 329 K/mm3 (150-450); RBC Distribution Width CV 13.4 % (11.6-14.6); RBC Distribution Width SD 45.2 fl (35.1-43.9); Red Blood Count 5.04 M/mm3 (4.2-5.4); White Blood Count 16.6 K/mm3 (4.4-11.0)
[2020-09-21 07:24] LABS: Anion Gap 7 (5-15); BUN 27 mg/dL (7-18); BUN/Creat Ratio 27.2 RATIO (10-20); Calcium,Total 8.7 mg/dL (8.5-10.1); Chloride 104 mmol/L (98-107); Creatinine, Serum 0.99 mg/dL (0.55-1.02); EST Glomerular Filtration Rate 59 mL/min (>60); Est Glom Filt Rate - Afr Amer 72 mL/min (>60); Estimated Creatinine Clearance 53.62 ml/min; Glucose 163 mg/dL (74-106); Magnesium 2.2 mg/dL (1.6-2.6); Potassium 4.2 mmol/L (3.5-5.1); Sodium Level 137 mmol/L (136-145); Thyroid Stim Hormone (TSH) 0.51 uIU/mL (0.358-3.74)
[2020-09-21] MEDS: hydroCHLOROthiazide 25 MG Tablet PO (08:32)
[2020-09-21] MEDS: Azithromycin 250 MG Tablet 500 MG PO (08:33)
[2020-09-21] MEDS: Lisinopril 10 MG Tablet PO (08:33)
[2020-09-21] MEDS: guaiFENesin 600 MG Tablet PO ×2 (08:33→21:26)
[2020-09-21] MEDS: Citalopram 20 MG Tablet PO (08:33)
--- NOTE | 2020-09-21 09:49 | PN_ITS ---
Patient Problems: Active and Suspected Problems Wheezing (Acute) Hypoxia (Acute) Bronchitis (Acute) Subjective: Went into A. fib overnight, received 2 doses of Cardizem and then was placed on p.o. Cardizem. She did convert to normal sinus rhythm. Denies any chest pain. Otherwise doing well. Vitals/I&O's: Vital Signs Temp Pulse Resp BP Pulse Ox 97.3 F L 68 16 132/74 H 93 09/21/20 08:36 09/21/20 08:36 09/21/20 08:36 09/21/20 08:36 09/21/20 08:36 Oxygen Flow Rate (L/min) [ 3 AMBULATION with Oxygen] Oxygen Flow Rate (L/min) 3 Oxygen Delivery Method Nasal Cannula Weight: 274 lb 7.608 oz Body Mass Index (BMI) 43.0 Intake and Output for Last 24 Hours 09/19/20 09/20/20 09/21/20 23:59 23:59 23:59 Intake Total 1040 / 1040 720 / 720 Balance 1040 / 1040 720 / 720 General: Alert, Oriented x3, Cooperative, No apparent distress HEENT: Atraumatic, PERRLA, EOMI, Normocephalic Oral: Moist Mucosa Neck: Supple, No JVD Lungs: No rhonchi, No rales, Diminished, no wheezing Cardiovascular: Regular rate, Regular Rhythm, Normal S1, Normal S2, No murmurs Abdomen: Soft, Non Tender, Non-Distended, No Hepato-splenomegaly Extremities: No edema, Capillary Refill Less than 3 Seconds Skin: No rashes, No breakdown Neurological: Neuro grossly intact, Sensory exam intact to light touch and pain Psych/Mental Status: Normal Affect, Appropriate Microbiology Past 72 Hours 09/19/20 08:45 Sputum, Expectorated/Coughed Gram Stain - Final 09/19/20 08:45 Sputum, Expectorated/Coughed Respiratory Culture - Final 09/18/20 13:35 Blood Culture (Wb) - Right Hand Blood Culture - Preliminary No growth in 48 hours. 09/18/20 13:20 Blood Culture (Wb) - Anticubital Left Blood Culture - Preliminary No growth in 48 hours. 09/18/20 19:27 Interface Orders Respiratory Panel (PCR) - Final 09/18/20 19:27 Mucosa - Nasopharyngeal Influenza Types A,B Direct FA (YEISON) - Final 09/18/20 18:45 Urine, Clean Catch Legionella Antigen - Final 09/18/20 18:45 Urine, Clean Catch Streptococcus pneumoniae Antigen (M - Final 09/18/20 13:36 Mucosa - Nose SARS-CoV-2 Antigen (Rapid) - Final Laboratory Results 09/20/20 12:45: POC Glucose 234 H 09/20/20 16:17: POC Glucose 192 H 09/21/20 06:10: POC Glucose 174 H 09/21/20 06:44: WBC 16.6 H, RBC 5.04, Hgb 15.1 H, Hct 46.3, MCV 91.9, MCH 30.0, MCHC 32.6, RDW Std Deviation 45.2 H, RDW Coeff of Najma 13.4, Plt Count 329, MPV 10.4, Immature Gran % (Auto) 0.600, Neut % (Auto) 85.2 H, Lymph % (Auto) 8.9 L, Dewey % (Auto) 5.2, Eos % (Auto) 0.0, Baso % (Auto) 0.1, Absolute Neuts (auto) 14.1 H, Absolute Lymphs (auto) 1.48, Nucleated RBC % 0 09/21/20 06:44: Sodium 137, Potassium 4.2, Chloride 104, Carbon Dioxide 26.0, Anion Gap 7, BUN 27 H, Creatinine 0.99, Estim Creat Clear Calc 53.62, Est GFR (MDRD) Af Amer 72, Est GFR (MDRD) Non-Af 59 L, BUN/Creatinine Ratio 27.2 H, Glucose 163 H, Calcium 8.7, Magnesium 2.2, TSH 0.51 Current Medications Acetaminophen (Acetaminophen 325 Mg Tablet) 650 mg PO Q6H PRN PRN PRN Reason: Pain Score 1-10/Temp > 100.7 F Al Hydroxide/Mg Hydroxide (Mag Hydrox/Al Hydrox/Simeth 30 Ml Udc) 30 ml PO Q6H PRN PRN PRN Reason: Gastric Burning Albuterol Sulfate (Albuterol 2.5 Mg/3 Ml Vial.Neb.) 2.5 mg INHALATION Q2H PRN PRN PRN Reason: SOB/Wheezing Azithromycin (Azithromycin 250 Mg Tablet) 500 mg PO Q24 [facility] Last Admin: 09/21/20 08:33 Dose: 500 mg Documented by: Bisacodyl (Bisacodyl 5 Mg Tablet) 5 mg PO DAILY PRN PRN PRN Reason: Constipation Citalopram Hydrobromide (Citalopram 20 Mg Tablet) 20 mg PO DAILY [facility] Last Admin: 09/21/20 08:33 Dose: 20 mg Documented by: Diltiazem HCl (Diltiazem Cd 120 Mg Capsule) 120 mg PO Q12 [facility] Last Admin: 09/21/20 08:35 Dose: 120 mg Documented by: Enoxaparin Sodium (Enoxaparin 120 Mg/0.8 Ml Syringe) 120 mg SC Q12@0600,1800 [facility] Last Admin: 09/21/20 06:04 Dose: 120 mg Documented by: Guaifenesin (Guaifenesin 600 Mg Tablet) 600 mg PO BID [facility] Last Admin: 09/21/20 08:33 Dose: 600 mg Documented by: Guaifenesin (Guaifenesin Dm 10 Ml Udc) 10 ml PO Q6H PRN PRN PRN Reason: COUGH Hydrochlorothiazide (Hydrochlorothiazide 25 Mg Tablet) 25 mg PO DAILY [facility] Last Admin: 09/21/20 08:32 Dose: 25 mg Documented by: Hydroxyzine Pamoate (Hydroxyzine Luz Elena 25 Mg Capsule) 25 mg PO QHS [facility] Last Admin: 09/20/20 21:48 Dose: 25 mg Documented by: Sodium Chloride () 250 mls @ 15 mls/hr IV .[id number] PRN PRN Reason: Saline Flush Sodium Chloride () 250 mls @ 15 mls/hr IV .[id number] PRN PRN Reason: Additional IVPB Infusion Insulin Human Lispro (Insulin Lispro 100 Unit/Ml Insuln.Pen) 0 unit SC [facility]; Protocol Last Admin: 09/21/20 06:11 Dose: 1 units Documented by: Lisinopril (Lisinopril 10 Mg Tablet) 10 mg PO DAILY [facility] Last Admin: 09/21/20 08:33 Dose: 10 mg Documented by: Melatonin (Melatonin 3 Mg Tablet) 3 mg PO QHS PRN PRN PRN Reason: INSOMNIA Prednisone (Prednisone 20 Mg Tablet) 40 mg PO DAILY@0800 [facility] Sodium Chloride (0.9% Saline Lock 10 Ml Syringe) 10 - 40 ml IV UD PRN PRN Reason: SALINE FLUSH Last Admin: 09/21/20 06:05 Dose: 10 ml Documented by: STROKE Vital Signs/Narrative: Vital Signs Temp Pulse Resp BP Pulse Ox 09/21/20 08:36 97.3 F L 68 16 132/74 H 93 09/21/20 07:53 66 09/21/20 07:42 94 09/21/20 06:18 97 F L 65 18 138/81 H 93 Medical Necessity - Tobacco Use Smoking Status: Never smoker Tobacco Use: Non-smoker Assessment/Plan All Active Problems Wheezing (Acute) Hypoxia (Acute) Bronchitis (Acute) 1. Acute hypoxic respiratory failure secondary to asthma exacerbation with possible bronchitis -She is improving, will continue with her inhalers as well as azithromycin -Continue with steroids, given her increase in blood sugar, will decrease her from Solu-Medrol 3 times daily to prednisone 40 mg daily -Covid and influenza negative -Wheezing appears to have resolved, she is on 3 L nasal cannula 2. DM 2 -Continue to hold metformin, and continue with sliding scale insulin -We will adjust insulin as necessary, Accu-Cheks AC at bedtime 3. HTN/new onset A. fib -Blood pressure is stable, can continue with lisinopril and hydrochlorothiazide -Continue with p.o. Cardizem twice daily and will monitor her heart rate as well as her blood pressure. She will also need to be transitioned to Eliquis given her age and her gender, she does have a [id number] score of 4. Would recommend follow-up with cardiology as an outpatient -Echo is pending 4. Anxiety/depression -Stable -Continue with Celexa and hydroxyzine DVT: Therapeutic Lovenox Inpatient E&M: 05998 Subs Hosp L2
[2020-09-21] MEDS: predniSONE 20 MG Tablet 40 MG PO (11:07)
[2020-09-21 11:26] LABS: Bedside Glucose 278 mg/dL (70-110)
[2020-09-21 17:21] LABS: Bedside Glucose 233 mg/dL (70-110)
[2020-09-21] MEDS: hydrOXYzine PAM 25 MG Capsule PO (21:27)
[2020-09-21 21:45] LABS: Bedside Glucose 200 mg/dL (70-110)
[2020-09-22 02:56] VITALS: PULSE 49
[2020-09-22 03:25] VITALS: BP 146/77; PULSE 58; RESP 17; TEMP 36.9; O2SAT 95
[2020-09-22] MEDS: Enoxaparin 120 MG/0.8 ML Syringe SC (06:24)
[2020-09-22 06:36] LABS: Bedside Glucose 111 mg/dL (70-110)
[2020-09-22 06:42] LABS: Absolute Lymphocyte Count 3.01 X10^3/uL (0.83-4.51); Basophil# 0.03 X10^3/uL; Basophil% 0.2 % (0-1); Eosinophil# 0.05 X10^3/uL; Eosinophils% 0.3 % (0-5); Hematocrit 46.2 % (37-47); Hemoglobin 14.8 g/dL (12.0-15.0); Lymphocyte # 3.01 X10^3/ul (4.0); Mean Corpuscular Hgb 29.6 pg (27.0-32.0); Mean Corpuscular Volume 92.4 fL (81-99); Mean Platelet Vol. 10.7 fl (6.2-12.0); Monocyte% 8.4 % (0-10); NRBC Flagged by Analyzer 0 % (0-5); Neutrophil # 9.96 X10^3/uL (2.7-7.7); Neutrophil % 69.5 % (47-70); Platelet Count 316 K/mm3 (150-450); RBC Distribution Width CV 13.2 % (11.6-14.6); RBC Distribution Width SD 45.2 fl (35.1-43.9); White Blood Count 14.3 K/mm3 (4.4-11.0)
[2020-09-22 07:00] VITALS: PULSE 57
[2020-09-22 07:02] VITALS: O2SAT 91
[2020-09-22 07:08] LABS: Anion Gap 9 (5-15); BUN 31 mg/dL (7-18); BUN/Creat Ratio 31.9 RATIO (10-20); Calcium,Total 8.6 mg/dL (8.5-10.1); Chloride 103 mmol/L (98-107); Creatinine, Serum 0.97 mg/dL (0.55-1.02); EST Glomerular Filtration Rate 61 mL/min (>60); Est Glom Filt Rate - Afr Amer 74 mL/min (>60); Estimated Creatinine Clearance 54.73 ml/min; Glucose 113 mg/dL (74-106); Potassium 3.7 mmol/L (3.5-5.1); Sodium Level 138 mmol/L (136-145)
[2020-09-22 09:22] VITALS: BP 115/69; PULSE 67; RESP 16; TEMP 36.6; O2SAT 93
[2020-09-22] MEDS: Citalopram 20 MG Tablet PO (10:33)
[2020-09-22] MEDS: hydroCHLOROthiazide 25 MG Tablet PO (10:33)
[2020-09-22] MEDS: guaiFENesin 600 MG Tablet PO (10:33)
[2020-09-22] MEDS: Azithromycin 250 MG Tablet 500 MG PO (10:33)
[2020-09-22] MEDS: Lisinopril 10 MG Tablet PO (10:34)
[2020-09-22] MEDS: dilTIAZem CD 120 MG Capsule PO (10:34)
[2020-09-22] MEDS: predniSONE 20 MG Tablet 40 MG PO (10:34)
[2020-09-22 11:33] VITALS: O2SAT 87; O2SAT 89
[2020-09-22 12:01] LABS: Bedside Glucose 104 mg/dL (70-110)
--- NOTE | 2020-09-22 12:57 | PCM.DC ---
- Discharge Diagnoses Current Active Problems: Current Active and Chronic Problems Wheezing (Acute) Hypoxia (Acute) Bronchitis (Acute) HTN (hypertension) (Chronic) Depression (Chronic) Diabetes mellitus (Chronic) You will use the following diet at home:: Regular Your food should be the consistency of: Regular Your liquids should be the consistency of: Regular/Thin Discharge Activity: Return to Normal Activity Call your doctor if you observe: Fever of 101 or Higher, Shortness of breath, Dizziness, Fainting spells, Swelling in the ankles, Chest pain, Increased palpitations (irregular heartbeat) Instructions: What Is COPD?, Understanding Asthma Triggers, Controlling Asthma Triggers: Irritants, Controlling Your Triggers: Allergens, Pulmonary Hypertension Allergies/Adverse Reactions: Allergies DUST MITES Allergy (Uncoded 09/18/20 12:50) Other Medications to take at Discharge Albuterol IH (ProAir) [Proair Hfa] 1 - 2 puff INHALATION Q4H PRN PRN 03/25/15 Citalopram [Celexa] 20 mg PO DAILY 03/25/15 Hydrochlorothiazide [Hctz] 25 mg PO DAILY 03/25/15 Hydroxyzine HCl 25 mg PO QHS 03/25/15 Lisinopril [Zestril] 10 mg PO DAILY 03/25/15 Fluticasone Furoate [Arnuity Ellipta] 1 puff INHALATION DAILY 09/18/20 Metformin HCl [Metformin HCl ER] 500 mg PO DAILY 09/18/20 Diltiazem CD [Cardizem CD] 120 mg PO Q12 #60 cap 09/22/20 predniSONE tablet 40 mg PO DAILY@0800 #14 tab 09/22/20 The following prescriptions were given: Diltiazem CD [Cardizem CD] 120 mg PO Q12 #60 cap Transmission Status: Pending to [facility] #30 predniSONE tablet 40 mg PO DAILY@0800 #14 tab Transmission Status: Pending to [facility] Primary Care Physician: Efra Ramirez DO [COURTESY STAFF PHYSICIAN] - Please follow up with your Primary Care Physician in: 3-5 days Test Results: Test results from this visit will be discussed in further detail at your follow-up appointment, if applicable. Please Follow Up With: Cristobal Olsen MD When: 4 weeks
--- NOTE | 2020-09-22 13:56 | DS.PCM_ITS ---
Discharge Date and Diagnosis - Problem List Patient Problems: Active and Suspected Problems Wheezing (Acute) Hypoxia (Acute) Bronchitis (Acute) Date of Admission: 09/18/20 Date of Discharge: 09/22/20 - Primary Discharge Diagnosis Acute Problems: Active Problems Wheezing (Acute) Hypoxia (Acute) Bronchitis (Acute) - Secondary Discharge Diagnosis Chronic Problems: Chronic Problems HTN (hypertension) (Chronic) Depression (Chronic) Diabetes mellitus (Chronic) Hospital Course and Treatment Imaging Results: Clinical Impression(s) from Imaging Studies Chest X-Ray 09/18/20 13:01 IMPRESSION: Normal x-ray examination of the chest. Electronically Signed: Jordin Luo MD at 14:08 EST Tel , Service support , Chest CTA 09/18/20 15:02 IMPRESSION: Normal CTA chest examination, without a demonstrated pulmonary embolism or arterial dissection. Electronically Signed: Jordin Luo MD at 15:36 EST Tel , Service support , Echo: Interpretation Summary Normal LV size. Left ventricular systolic function is normal. The estimated ejection fraction is 65 %. Pulmonary artery systolic pressure is 44 mmHg. Mild (1+) tricuspid valve insufficiency. Operations: None Procedures: 2-D Echocardiogram Summary of Care Provided: Per HPI: Ms Quiñonez is a 65 year old F with a PMH of Asthma, HTN, Allergies, and DM-2 who has been experiencing about 2 weeks of cough and congestion with hypoxia. She states that she had been having some SOB and was seen by a aquatics director at [facility] (pt unable to remember her name) and she was placed on inhalers which have not helped. She got a SpO2 monitor and has been checking day and she reports that her SpO2 during this time period has been 84-91%. Her aquatics director is aware of her hypoxemia and told her that her baseline might just be 90-91%. She was placed on inhalers and it sounds like PFT were done but I do not have those available to look at today. She has been SOB mildly. She denies fever, chills, mylagia, change in smell, N/V, diarrhea and states that she is feeling fine otherwise. In the ED her SpO2 is 90% on RA and her sats are stable at 94-96% on 3 L. She does have a Erythrocytosis at baseline and it appears that this is chronic for her. Her Lab work is otherwise unimpressive. A CTA was done and was normal. She has marked wheezing on exam. Her COVID testing was negative. Hospital Course: 1. Acute hypoxic respiratory failure secondary to asthma exacerbation with possible bronchitis/pulmonary hypertension -She is improving, will continue with her inhalers as well as azithromycin, she completed her azithromycin prior to discharge -Continue with steroids, given her increase in blood sugar, will decrease her from Solu-Medrol 3 times daily to prednisone 40 mg daily -Covid and influenza negative -Wheezing appears to have resolved, she is on 2 L nasal cannula, ambulatory pulse ox today demonstrate that she will need to 2 L with ambulation -She is continue to improve just on the oral prednisone and would like to go home today. I did discuss the plan for discharge with her and her today both of whom expressed understanding of the risks and benefits of going home and would still like to go home today. She understands that she also has pulmonary hypertension with pressure of 44 mmHg. I did recommend that she follow-up with pulmonology as an outpatient both for evaluation of her asthma exacerbation and for possible work-up for sleep apnea, she does snore and does take naps throughout the day but she has been doing that for several years she states. At the moment we will see how she does with the oxygen and the prednisone as when she did present she had significant wheezing and was very tight on exam. However she may need Lasix as an outpatient if repeat echo in a couple of months does not demonstrate improvement in her pulmonary hypertension. 2. DM 2 -Continue to hold metformin, and continue with sliding scale insulin -We will adjust insulin as necessary, Accu-Cheks AC at bedtime 3. HTN/new onset A. fib -Blood pressure is stable, can continue with lisinopril and hydrochlorothiazide -Continue with p.o. Cardizem twice daily and will monitor her heart rate as well as her blood pressure. She will also need to be transitioned to Eliquis given her age and her gender, she does have a [id number] score of 4. Would recommend follow-up with cardiology as an outpatient. She did convert to normal sinus rhythm. -Echo with an EF of 65% and a pulmonary artery systolic pressure of 44 mmHg, she will need to follow-up with pulmonology as an outpatient and have a repeat echo in a few months 4. Anxiety/depression -Stable -Continue with Celexa and hydroxyzine Patient Problems: Active and Suspected Problems Wheezing (Acute) Hypoxia (Acute) Bronchitis (Acute) - Physical Exam Vitals/I&O's: Vital Signs Temp Pulse Resp BP Pulse Ox 97.8 F 67 16 115/69 89 09/22/20 09:22 09/22/20 09:22 09/22/20 09:22 09/22/20 09:22 09/22/20 11:33 Oxygen Flow Rate (L/min) [ 2 AMBULATION with Oxygen] Oxygen Flow Rate (L/min) [ 0 AMBULATING on Room Air] Oxygen Flow Rate (L/min) [At 0 REST on Room Air] Oxygen Flow Rate (L/min) 2 Oxygen Delivery Method Nasal Cannula Weight: 274 lb 7.608 oz Body Mass Index (BMI) 43.0 Intake and Output for Last 24 Hours 09/20/20 09/21/20 09/22/20 23:59 23:59 23:59 Intake Total 720 / 720 1010 / 1010 100 / 100 Output Total 450 / 450 Balance 720 / 720 560 / 560 100 / 100 General: Alert, Oriented x3, Cooperative, No apparent distress HEENT: Atraumatic, PERRLA, EOMI, Normocephalic Oral: Moist Mucosa Neck: Supple, No JVD Lungs: No rhonchi, No rales, Diminished, no wheezing Cardiovascular: Regular rate, Regular Rhythm, Normal S1, Normal S2, No murmurs Abdomen: Soft, Non Tender, Non-Distended, No Hepato-splenomegaly Extremities: No edema, Capillary Refill Less than 3 Seconds Skin: No rashes, No breakdown Neurological: Neuro grossly intact, Sensory exam intact to light touch and pain Psych/Mental Status: Normal Affect, Appropriate Microbiology Past 72 Hours 09/19/20 08:45 Sputum, Expectorated/Coughed Gram Stain - Final 09/19/20 08:45 Sputum, Expectorated/Coughed Respiratory Culture - Final 09/18/20 13:35 Blood Culture (Wb) - Right Hand Blood Culture - Preliminary No growth in 48 hours. 09/18/20 13:20 Blood Culture (Wb) - Anticubital Left Blood Culture - Preliminary No growth in 48 hours. Laboratory Results 09/21/20 17:14: POC Glucose 233 H 09/21/20 21:24: POC Glucose 200 H 09/22/20 05:45: WBC 14.3 H, RBC 5.00, Hgb 14.8, Hct 46.2, MCV 92.4, MCH 29.6, MCHC 32.0, RDW Std Deviation 45.2 H, RDW Coeff of Najma 13.2, Plt Count 316, MPV 10.7, Immature Gran % (Auto) 0.600, Neut % (Auto) 69.5, Lymph % (Auto) 21.0, [place] % (Auto) 8.4, Eos % (Auto) 0.3, Baso % (Auto) 0.2, Absolute Neuts (auto) 10.0 H, Absolute Lymphs (auto) 3.01, Nucleated RBC % 0 09/22/20 05:45: Sodium 138, Potassium 3.7, Chloride 103, Carbon Dioxide 26.0, Anion Gap 9, BUN 31 H, Creatinine 0.97, Estim Creat Clear Calc 54.73, Est GFR (MDRD) Af Amer 74, Est GFR (MDRD) Non-Af 61, BUN/Creatinine Ratio 31.9 H, Glucose 113 H, Calcium 8.6 09/22/20 06:23: POC Glucose 111 H 09/22/20 11:55: POC Glucose 104 Current Medications Acetaminophen (Acetaminophen 325 Mg Tablet) 650 mg PO Q6H PRN PRN PRN Reason: Pain Score 1-10/Temp > 100.7 F Al Hydroxide/Mg Hydroxide (Mag Hydrox/Al Hydrox/Simeth 30 Ml Udc) 30 ml PO Q6H PRN PRN PRN Reason: Gastric Burning Albuterol Sulfate (Albuterol 2.5 Mg/3 Ml Vial.Neb.) 2.5 mg INHALATION Q2H PRN PRN PRN Reason: SOB/Wheezing Azithromycin (Azithromycin 250 Mg Tablet) 500 mg PO Q24 NIRAV Last Admin: 09/22/20 10:33 Dose: 500 mg Documented by: Bisacodyl (Bisacodyl 5 Mg Tablet) 5 mg PO DAILY PRN PRN PRN Reason: Constipation Citalopram Hydrobromide (Citalopram 20 Mg Tablet) 20 mg PO DAILY [facility] Last Admin: 09/22/20 10:33 Dose: 20 mg Documented by: Diltiazem HCl (Diltiazem Cd 120 Mg Capsule) 120 mg PO Q12 [facility] Last Admin: 09/22/20 10:34 Dose: 120 mg Documented by: Enoxaparin Sodium (Enoxaparin 120 Mg/0.8 Ml Syringe) 120 mg SC Q12@0600,1800 [facility] Last Admin: 09/22/20 06:24 Dose: 120 mg Documented by: Guaifenesin (Guaifenesin 600 Mg Tablet) 600 mg PO BID [facility] Last Admin: 09/22/20 10:33 Dose: 600 mg Documented by: Guaifenesin (Guaifenesin Dm 10 Ml Udc) 10 ml PO Q6H PRN PRN PRN Reason: COUGH Hydrochlorothiazide (Hydrochlorothiazide 25 Mg Tablet) 25 mg PO DAILY [facility] Last Admin: 09/22/20 10:33 Dose: 25 mg Documented by: Hydroxyzine Pamoate (Hydroxyzine Luz Elena 25 Mg Capsule) 25 mg PO QHS [facility] Last Admin: 09/21/20 21:27 Dose: 25 mg Documented by: Sodium Chloride () 250 mls @ 15 mls/hr IV .[id number] PRN PRN Reason: Saline Flush Sodium Chloride () 250 mls @ 15 mls/hr IV .[id number] PRN PRN Reason: Additional IVPB Infusion Insulin Human Lispro (Insulin Lispro 100 Unit/Ml Insuln.Pen) [address] [facility]; Protocol Last Admin: 09/22/20 11:59 Dose: Not Given Documented by: Lisinopril (Lisinopril 10 Mg Tablet) 10 mg PO DAILY [facility] Last Admin: 09/22/20 10:34 Dose: 10 mg Documented by: Melatonin (Melatonin 3 Mg Tablet) 3 mg PO QHS PRN PRN PRN Reason: INSOMNIA Prednisone (Prednisone 20 Mg Tablet) 40 mg PO DAILY@0800 [facility] Last Admin: 09/22/20 10:34 Dose: 40 mg Documented by: Sodium Chloride (0.9% Saline Lock 10 Ml Syringe) 10 - 40 ml IV UD PRN PRN Reason: SALINE FLUSH Last Admin: 09/21/20 06:05 Dose: 10 ml Documented by: Discharge Activity: Return to Normal Activity Call your doctor if you observe: Fever of 101 or Higher, Shortness of breath, Dizziness, Fainting spells, Swelling in the ankles, Chest pain, Increased palpitations (irregular heartbeat) Home Medications: Medications to take at Discharge Albuterol IH (ProAir) [Proair Hfa] 1 - 2 puff INHALATION Q4H PRN PRN 03/25/15 Citalopram [Celexa] 20 mg PO DAILY 03/25/15 Hydrochlorothiazide [Hctz] 25 mg PO DAILY 03/25/15 Hydroxyzine HCl 25 mg PO QHS 03/25/15 Lisinopril [Zestril] 10 mg PO DAILY 03/25/15 Fluticasone Furoate [Arnuity Ellipta] 1 puff INHALATION DAILY 09/18/20 Metformin HCl [Metformin HCl ER] 500 mg PO DAILY 09/18/20 Apixaban [Eliquis] 5 mg PO BID #60 tab 09/22/20 Diltiazem CD [Cardizem CD] 120 mg PO Q12 #60 cap 09/22/20 predniSONE tablet 40 mg PO DAILY@0800 #14 tab 09/22/20 Following Prescriptions Were Given to Patient: Diltiazem CD [Cardizem CD] 120 mg PO Q12 #60 cap Transmission Status: Received by [employer] [facility] Apixaban [Eliquis] 5 mg PO BID #60 tab Transmission Status: Received by [employer] [facility] predniSONE tablet 40 mg PO DAILY@0800 #14 tab Transmission Status: Received by [employer] [facility] Primary Care Physician: Efra Ramirez DO [COURTESY STAFF PHYSICIAN] - Please follow up with your Primary Care Physician in: 3-5 days Please Follow Up With: Cristobal Olsen MD When: 4 weeks Please Follow Up With: Efra Ramirez DO Please Follow Up With: Cardiology When: 2-4 weeks Patient Instructions: What Is COPD?, Understanding Asthma Triggers, Controlling Asthma Triggers: Irritants, Controlling Your Triggers: Allergens, Pulmonary Hypertension Disposition: Home Minutes spent on discharge:: 35 Patient Condition:: Stable Medical Necessity - Tobacco Use Smoking Status: Never smoker Tobacco Use: Non-smoker Meaningful Use Info Meaningful Use Diagnoses (Choose all that apply): None applicable Inpatient E&M: [id number] [facility]
== END 2020-09-22 15:13 | disposition home or self-care (01) | DRG 202 ==
LOC: ED 16:13 → PCU 17:34
PROVIDERS: Internal Medicine; Physician Assistant; Admitting Provider Internal Medicine; Emergency Provider Emergency Medicine; PCP Family Medicine; Visit Provider Family Medicine
DX: J45.901 Unspecified asthma with (acute) exacerbation (principal); J96.01 Acute respiratory failure with hypoxia; Z68.41 Body mass index [BMI] 40.0-44.9, adult; I27.20 Pulmonary hypertension, unspecified; I10 Essential (primary) hypertension; I48.91 Unspecified atrial fibrillation; F32.9 Major depressive disorder, single episode, unspecified; F41.9 Anxiety disorder, unspecified; Z79.899 Other long term (current) drug therapy; Z79.84 Long term (current) use of oral hypoglycemic drugs; Z79.51 Long term (current) use of inhaled steroids; D75.1 Secondary polycythemia; E66.01 Morbid (severe) obesity due to excess calories; E11.65 Type 2 diabetes mellitus with hyperglycemia; T38.0X5A Adverse effect of glucocorticoids and synthetic analogues, initial encounter
CPT/HCPCS: 36415; 71045; 71275; 80048; 80053; 82962; 83605; 83735; 83880; 84100; 84443; 84484; 85025; 87040; 87070; 87205; 87426; 87449; 87633; 87635; 87804; 93005; 93306; 94640; 97802; 99251; 99284; J7050; Q9957; Q9967; A4216; G0463; J0696; U0002

== ENCOUNTER → 2020-11-07 09:02 | Outpatient (CLI) | payer MEDICARE, OTHER, SELFPAY ==
[2020-10-04 11:20] VITALS: BMI 44.3
--- NOTE | 2020-11-07 14:41 | PFTCOMP ---
COMPLETE PULMONARY FUNCTION TEST INTERPRETATION Brief HPI: Patient is a 65 year old female, currently under the care of Dr. White, who presents to [facility] for complete pulmonary function tests secondary to diagnosis of unspecified asthma. Respiratory therapist reports good effort and reproducible results. Interpretation: Forced expiration spirometry shows no large airways obstructive ventilatory defect with an FEV1 of 90% predicted. There is no significant bronchodilator response by strict ATS criteria. Spirograms are of good quality and plateau slowly, indicating slowly emptying areas of the lungs. The respiratory flow volume loop shows decreased expiratory flow rates at high lung volumes consistent with small airways obstruction. Lung volumes by body plethysmography show a normal total lung capacity at 4.79 L, 91% predicted. All other lung volumes are within normal limits. Diffusion capacity by carbon monoxide is normal at 86% predicted. The airway resistance is normal. No previous pulmonary function tests were available for review. Impression: These pulmonary function tests are grossly within normal limits with some stigmata of possible small airways obstruction.
== END ==
PROVIDERS: PCP Family Medicine; Referring Provider Internal Medicine Critical Care Medicine; Visit Provider Internal Medicine Critical Care Medicine
DX: J45.909 Unspecified asthma, uncomplicated (principal)
CPT/HCPCS: 94060; 94726; 94729

== ENCOUNTER → 2020-11-08 08:00 | Outpatient (CLI) | payer MEDICARE, OTHER, SELFPAY ==
[2020-10-04 11:20] VITALS: BMI 44.3
[2020-11-08 08:15] VITALS: PULSE 102; PULSE 103; PULSE 73; PULSE 90; PULSE 93; PULSE 97; PULSE 98; PULSE 99; O2SAT 92; O2SAT 93; O2SAT 94; O2SAT 95
--- NOTE | 2020-11-08 17:02 | PCM.PSN.6M ---
PSN 6 Minute Walk Test - 6 Minute Walk Test 6 Minute Walk Test: 6 Minute Walk Test PSN:6-Minute Walk Test Start: 11/08/20 08:28 Freq: Status: Active Protocol: RESP.6MINW Document 11/08/20 08:15 BERTIN (Rec: 11/08/20 08:31 [id number]) 6 Minute Walk Test Date Performed 11/08/20 Time Performed 08:15 Height 5 ft 7 in Weight: 127.006 kg Weight in Pounds 280.[address]: Bryan White FIO2 (% Oxygen) 21 Assistive device used: None Pre-test Oxygen Delivery Method Room Air Pulse Ox (%) 94 Pulse Rate (60-100 beats/min) 73 Dyspnea Wei Scale (0-10) 0 Exertion Wei Scale (6-20) 6 1st minute Oxygen Delivery Method Room Air Pulse Ox (%) 94 Pulse Rate (60-100 beats/min) 90 2nd minute Oxygen Delivery Method Room Air Pulse Ox (%) 94 Pulse Rate (60-100 beats/min) 93 3rd minute Oxygen Delivery Method Room Air Pulse Ox (%) 93 Pulse Rate (60-100 beats/min) 97 4th minute Oxygen Delivery Method Room Air Pulse Ox (%) 93 Pulse Rate (60-100 beats/min) 102 H 5th minute Oxygen Delivery Method Room Air Pulse Ox (%) 93 Pulse Rate (60-100 beats/min) 103 H 6th minute Oxygen Delivery Method Room Air Pulse Ox (%) 92 Pulse Rate (60-100 beats/min) 98 Post-test Oxygen Delivery Method Room Air Pulse Ox (%) 95 Pulse Rate (60-100 beats/min) 99 Dyspnea Wei Scale (0-10) 3 Exertion Wei Scale (6-20) 11 Full Laps Walked 17 Partial Lap, Number of Tiles Walked 0 Total Distance Walked (ft) 1003 - Interpretation Interpretation: The patient was able to ambulate 1003 feet over the course of 6 minutes on room air with no assistive devices or breaks. The patient did have significant desaturation as low as 92%, but no significant tachycardia was noted. These findings are consistent with a respiratory limitation exercise tolerance. - Recommendations Recommendations: No supplemental oxygen is indicated at this time. However, patient will need to be followed closely given level of desaturation.
== END ==
PROVIDERS: PCP Family Medicine; Referring Provider Internal Medicine Critical Care Medicine; Visit Provider Internal Medicine Critical Care Medicine
DX: J45.909 Unspecified asthma, uncomplicated (principal)
CPT/HCPCS: 94618

== ENCOUNTER 2020-12-07 10:04 | Outpatient (RCR) | payer MEDICARE, OTHER, SELFPAY ==
[2020-11-22 15:22] VITALS: BMI 44.9
[2020-12-07] MEDS: COVID-19 VACC, MRNA(PFIZER)/PF 30 MCG/0.3 ML SYRINGE IM (08:18)
[2020-12-28] MEDS: COVID-19 VACC, MRNA(PFIZER)/PF 30 MCG/0.3 ML SYRINGE IM (08:06)
== END 2020-12-07 23:59 ==
LOC: IMMUN 10:04
PROVIDERS: PCP Family Medicine; Visit Provider Family Medicine
DX: Z23 Encounter for immunization (principal)
CPT/HCPCS: 0001A; 0002A; 91300

== ENCOUNTER → 2020-12-18 06:50 | Outpatient (CLI) | payer MEDICARE, OTHER, SELFPAY ==
[2020-11-22 15:22] VITALS: BMI 44.9
--- NOTE | 2020-12-18 08:43 | STRESSREP_ITS ---
Stress Test Report Date: 12-18-2020 Procedure: Pharmacologic stress nuclear imaging study Indications: Atrial fibrillation Consent: Per the patient Procedure: The patient underwent pharmacologic (Regadenoson 0.4mg ) evaluation with a peak heart rate of 100 beats per minute (65%predicted maximal heart rate) and a peak blood pressure of 150/72 mmHg. The baseline ECG demonstrated sinus rhythm. The peak pharmacologic ECG demonstrated no obvious ECG changes. There were no cardiac dysrhythmias pretest, during pharmacologic infusion, or recovery. There was no complaint of chest discomfort during pharmacologic infusion or recovery. The examination was discontinued secondary to completion of protocol. Impression: 1. Pharmacologic (Regadenoson) evaluation 2. Peak pharmacologic ECG with no obvious ECG changes. 3. There were no cardiac dysrhythmias pretest, during pharmacologic infusion, or recovery. 4. Nuclear images pending Myocardial perfusion imaging study: Technique: The patient was injected with 14.8 millicuries of technetium 99m Cardiolite and subsequently rest SPECT Cardiolite nuclear imaging was obtained in the horizontal long, vertical long, and short axis views. The patient underwent pharmacologic (Regadenoson) evaluation with a peak heart rate of 100 beats per minute (65% percent predicted maximal heart rate) and a peak blood pressure of 150/72 mmHg. The patient was injected with 44.7 millicuries of technetium 99m Cardiolite and subsequently stress SPECT Cardiolite nuclear imaging was obtained in the horizontal long, vertical long, and short axis views. A gated Cardiolite study at peak stress was obtained. Interpretation: Rest and stress SPECT Cardiolite nuclear imaging status post realignment, normalization, and attenuation correction demonstrate at rest the appearance of subtle diminished tracer uptake in portions of the distal anterior/anteroseptal segments which status post stress appears to improve/normalize. There is end systolic thickening and brightening. The gated Cardiolite study demonstrates myocardial thickening and inward wall motion. The reported LVEF is 75%. Impression: 1. Rest and stress myocardial nuclear imaging demonstrate myocardial perfusion changes at rest which appear to improve/normalize following stress appearing compatible with shifting soft tissue attenuation/artifact with no myocardial perfusion changes considered diagnostic for associated stress-induced myocardial ischemia. 2. The gated Cardiolite study reports an LVEF of 75%. This note was generated with [employer] software. It may contain incorrect words, spelling, and punctuation that were not noted in checking the note before signing.
== END ==
PROVIDERS: PCP Family Medicine; Referring Provider Internal Medicine Cardiovascular Disease; Visit Provider Internal Medicine Cardiovascular Disease
DX: R06.00 Dyspnea, unspecified (principal); R06.02 Shortness of breath; I48.91 Unspecified atrial fibrillation
CPT/HCPCS: 78452; 93017; A9500; A4216; J2785

== ENCOUNTER 2023-01-06 12:41 | Emergency (ER) | payer MEDICARE, OTHER, SELFPAY ==
[2023-01-06 12:42] VITALS: BP 153/102; PULSE 66; RESP 18; TEMP 36.1; O2SAT 94; BMI 46.5
--- NOTE | 2023-01-06 15:11 | CT_ITS ---
STUDY: CT BRAIN WITHOUT CONTRAST REASON FOR EXAM: Female, 67 years old. right orbital area and forehead pain RADIATION DOSAGE (If Supplied By Facility): CTDIvol = ( 44.99 ) mGy, DLP = ( 863.60 ) mGycm TECHNIQUE: Transaxial CT imaging of the brain was performed without administration of intravenous contrast material. Individualized dose optimization techniques were used for this CT. COMPARISON: No relevant priors. FINDINGS: Normal soft tissue structures. Normal calvarium. Normal size ventricles and extra-axial spaces for the patient''s age. Normal white matter tracts of the cerebral hemispheres. Normal basal ganglia and thalami. Normal brainstem. Normal cerebellum. There is no intracranial hemorrhage. There are no findings of an acute ischemic infarction. Air-fluid level left maxillary sinus. CT/Brain/Head without Contrast IMPRESSION: Acute left maxillary sinusitis. Normal unenhanced CT scan of the brain. Electronically Signed: Ac Ryder MD at 16:29 EDT ,
--- NOTE | 2023-01-06 15:13 | EX.ED.DYSGE1 ---
HPI History of Present Illness Chief Complaint: General Illness Informant: patient Narrative Narrative: Patient complains of what she thinks may be a sinus infection. She was seen in urgent care and sent over here for evaluation. She states this started yesterday. She had pain develop around her eye. She states her eye but what she actually means is the cheek right below the eye is the main area. She states it was very painful. But she never had visual changes. She has had multiple episodes of this. She states that she feels like there is a little tingling right by the right corner of her nose and upper lip. She can still feel the area but it seems a little different. No trauma. She was blowing the nose and gets a little bit more congestion from the right side but this is not really new. No blood from this area and she is on Eliquis for history of A-fib. She states she is not having a headache. She has no other neurologic symptoms other than in the right cheek. No balance problems and no vision problems now or at any times or when she is having the pain and she is not having the pain now. She has never had migraines, cluster headaches or trigeminal neuralgia. No new medications or activities. [facility] Medical History Asthma Bronchitis Depression Essential hypertension Hypoxia Kidney disease PAF (paroxysmal atrial fibrillation) Rheumatoid arthritis Skin cancer Type 2 diabetes mellitus Home Medications albuterol sulfate 90 mcg/actuation aerosol inhaler 1 - 2 puff inhalation Q4H PRN PRN Sob &/Or Wheezing 03/25/15 [History Last Taken Unknown] citalopram 20 mg tablet 20 mg PO DAILY 03/25/15 [History Last Taken 09/17/20] hydrochlorothiazide 25 mg tablet 25 mg PO DAILY 03/25/15 [History Last Taken 09/17/20] hydroxyzine HCl 25 mg tablet 25 mg PO QHS 03/25/15 [History Last Taken 09/17/20] lisinopril 10 mg tablet 10 mg PO DAILY 03/25/15 [History Last Taken 09/17/20] metformin 500 mg tablet,extended release 24 hr 500 mg PO DAILY dm 09/18/20 [History Last Taken 09/18/20] fluocinonide 0.05 % topical cream 1 applic topical BID-QID PRN 10/04/20 [History Last Taken Unknown] multivitamin,mj-njfc-mpdlciuw (Complete Multivitamin tablet) 1 tab PO DAILY 10/04/20 [History Last Taken Unknown] vit C 50 mg-E 15 unit-zinc cit 4.5 mg-lutein 2.5 mg-zeaxan chew tablet (Ocuvite Eye Health) 2 tab PO DAILY 10/04/20 [History Last Taken Unknown] clobetasol 0.05 % topical spray 1 applic topical BID PRN 12/27/21 [History Last Taken Unknown] lactobacillus combination no.9 4 billion cell capsule (Adult 50 Plus Probiotic) 4,000 mmu cells PO DAILY 12/27/21 [History Last Taken Unknown] apixaban 5 mg tablet (Eliquis) 5 mg PO BID #180 tabs 05/23/22 [Rx Last Taken Unknown] diltiazem HCl 120 mg capsule,extended release 24 hr 120 mg PO DAILY #90 caps 09/19/22 [Rx Last Taken Unknown] fluticasone furoate 100 mcg/actuation blister powder for inhalation (Arnuity Ellipta) 1 inh inhalation DAILY #30 ea 10/02/22 [Rx Last Taken Unknown] baclofen 20 mg tablet 20 mg PO BID #30 tabs 01/06/23 [Rx Last Taken Unknown] Allergy/AdvReac Type Severity Reaction Status Date / Time house dust mite Allergy NEEDS Verified 01/06/23 12:47 FOLLOW-UP Family History Father Lymphoma Mother CAD (coronary artery disease) Hypertension Diabetes Surgical History H/O section History of knee replacement procedure of right knee History of left knee replacement History of total hysterectomy History of tympanoplasty of left ear Social History Smoking Status: Never smoker alcohol intake: current details: rare substance use type: does not use caffeine: Yes Type: coffee Number of servings: 1 ROS ROS ED Constitutional Constitutional ED: Denies chills, fever(s) or sweats Eyes Eyes: Denies blurry vision, change in vision or diplopia ENT ENT ED: Reports other Details: See history of present illness ; Denies ear pain, rhinorrhea or sore throat Cardiovascular Cardiovascular: Denies chest pain or palpitations Respiratory/Chest Respiratory/Chest: Denies cough Gastrointestinal Gastrointestinal: Denies vomiting Genitourinary Genitourinary ED: Denies dysuria Musculoskeletal Musculoskeletal: Denies arthralgias, back pain, myalgias or neck pain Integumentary Denies rash Neurologic Neurologic: Reports paresthesias; Denies headache(s) or weakness Hematologic/Lymphatic Hematologic/Lymphatic: Reports easy bleeding and easy bruising Allergic/Immunologic Allergic/Immunologic ED: Denies urticaria EXAM Physical Exam Narrative Exam Narrative: CONSTITUTIONAL: Patient is nontoxic in appearance. The patient looks comfortable. HEENT: No notable trauma. Mucous membranes moist. No sinus tenderness. Tympanic membranes are normal. No temporal artery tenderness. No facial rashes or swelling. No vesicles. I cannot reproduce her symptoms at this time. Sensation is intact although she states it feels different when I touch the right upper lip near the corner of her nose. EYES: No conjunctival injection. No proptosis. No pain with range of motion. No limitation of range of motion NECK: No meningismus. No JVD. Range of motion is normal looking up down left and right without discomfort. CARDIOVASCULAR: Regular rate. It sounds like she is in a regular rhythm even though she has a history of atrial fibrillation. No notable murmur. No JVD. RESPIRATORY: No respiratory distress. Breathing is unlabored. No wheezes. GASTROINTESTINAL: Not distended. Bowel sounds are normal. No tenderness. No guarding. No rebound. No palpable mass. No bruit. GENITOURINARY: No tenderness over the bladder. No CVA tenderness. MUSCULOSKELETAL: Atraumatic. No peripheral edema. No cord. No tenderness along the deep venous system. No asymmetry. NEUROLOGICAL: Patient is alert and oriented. No focal deficit noted. NIH stroke scale is 0. SKIN: No noted rashes. No vesicles no diaphoresis. PSYCHIATRIC: Patient is calm. Mood is appropriate. Const Vital Signs: 01/06/23 12:42 01/06/23 15:11 Temperature 97 F L Temperature Source Temporal Pulse Rate 66 Respiratory Rate 18 Respiratory Effort Normal Respiratory Pattern Normal Blood Pressure 153/102 H Blood Pressure Mean 119 Pulse Ox 94 Oxygen Delivery Method Room Air MDM MDM MDM Narrative Medical decision making narrative: My independent interpretation the patient's CT of the head shows minimal fluid in the left sinus but nothing in the right. No frontal sinus disease. Patient is no intracranial issues. Final reading is acute left maxillary sinusitis and normal unenhanced CT scan of the brain. However, she has no drainage and no tenderness on the left side of the sinus. She has no symptoms over there. All of her symptoms are right-sided. I do not think this requires antibiotic treatment. Patient's symptoms are intermittent sharp uncomfortable pain really located to the right maxillary area. This is more consistent along with her age and sex with being trigeminal neuralgia. She does not have temporal artery tenderness. She has never had any visual complaints. We working to start her on Tegretol. However, this has significant interaction with her apixaban. Therefore we will initiate baclofen instead. I explained that this may need to be increased slowly to control symptoms. We discussed reasons to return and the importance of follow-up. We also discussed that this can be a recurrent problem. Radiography Diagnostic Testing: Clinical Impression(s) from Imaging Studies Brain CT 01/06/23 15:11 IMPRESSION: Acute left maxillary sinusitis. Normal unenhanced CT scan of the brain. Electronically Signed: Ac Ryder MD at 16:29 EDT Reading Location ID and State: [facility] / [place] , Service support , Discharge Plan Triage Chief Complaint: General Illness ED Provider: Orlando Leggett Dx/Rx/DC Orders Clinical Impression: Right trigeminal neuralgia Instructions: ED Trigeminal Neuralgia Prescriptions: New baclofen 20 mg tablet 20 mg PO BID Qty: 30 0RF Rx Instructions: Start twice a day and then go up to 3 times a day after 3 days No Action multivitamin,ky-sxqn-ayeqcjja tablet 1 tab PO DAILY Ocuvite Eye Health 50 mg-15 unit- 4.5 mg-2.5 mg tablet,chewable 2 tab PO DAILY fluocinonide 0.05 % cream 1 applic TOPICAL BID-QID PRN clobetasol 0.05 % spray,non-aerosol 1 applic topical BID PRN Rx Instructions: not to exceed 26 sprays per single application Adult 50 Plus Probiotic 4 billion cell capsule 4,000 mmu cells PO DAILY Rx Instructions: administer with a meal hydroxyzine HCl 25 MG tablet 25 mg PO QHS citalopram 20 MG tablet 20 mg PO DAILY hydrochlorothiazide 25 MG tablet 25 mg PO DAILY albuterol sulfate 1 PUFF inhaler 1 - 2 puff INHALATION Q4H PRN PRN (Reason: Sob &/Or Wheezing) lisinopril 10 MG tablet 10 mg PO DAILY metformin 500 MG tablet extended release 24 hr 500 mg PO DAILY Eliquis 5 mg tablet 5 mg PO BID Qty: 180 3RF diltiazem HCl 120 mg capsule,extended release 24hr 120 mg PO DAILY Qty: 90 3RF Arnuity Ellipta 100 mcg/actuation blister with device 1 inh inhalation DAILY Qty: 30 6RF Primary Care Provider: Jed Euceda Referrals: Jed Euceda MD [Primary Care Provider] - 3-5 Days Disposition Disposition: Home, Self Care
[2023-01-06 17:20] VITALS: PULSE 92; RESP 18; O2SAT 98
== END 2023-01-06 17:21 | disposition home or self-care (01) ==
PROVIDERS: Emergency Provider Emergency Medicine; PCP Family Medicine; Visit Provider Emergency Medicine
DX: G50.0 Trigeminal neuralgia (principal); I48.91 Unspecified atrial fibrillation; E11.9 Type 2 diabetes mellitus without complications; J01.00 Acute maxillary sinusitis, unspecified; I10 Essential (primary) hypertension; Z79.01 Long term (current) use of anticoagulants; R20.2 Paresthesia of skin
CPT/HCPCS: 70450; 99282

== ENCOUNTER 2024-01-20 17:48 | Emergency (ER) | payer MEDICARE, OTHER, SELFPAY ==
[2024-01-20 17:49] VITALS: BP 149/66; PULSE 78; RESP 16; RESP 18; TEMP 37; O2SAT 95; BMI 44.8
[2024-01-20 18:33] LABS: Absolute Neutrophil Count 11.7 X10^3/uL (2.0-7.7); Basophil# 0.05 X10^3/uL; Basophil% 0.4 % (0-1); Eosinophil# 0.07 X10^3/uL; Eosinophils% 0.5 % (0-5); Lymphocyte % 4.3 % (19-41); Mean Corp Hgb Conc 32.6 g/dL (32-36); Mean Corpuscular Hgb 29.5 pg (27.0-32.0); Mean Corpuscular Volume 90.5 fL (81-99); Mean Platelet Vol. 10.6 fl (6.2-12.0); Monocyte# 1.54 X10^3/uL; Monocyte% 10.9 % (0-10); NRBC Flagged by Analyzer 0 % (0-5); Neutrophil # 11.74 X10^3/uL (2.7-7.7); Neutrophil % 83.3 % (47-70); POSITIVE DIFFERENTIAL YES; Platelet Count 263 K/mm3 (150-450); RBC Distribution Width CV 13.4 % (11.6-14.6); RBC Distribution Width SD 44.8 fl (35.1-43.9); Red Blood Count 4.75 M/mm3 (4.2-5.4); White Blood Count 14.1 K/mm3 (4.4-11.0)
[2024-01-20 18:41] LABS: Differential Indicated SCAN CRITERIA MET
[2024-01-20 18:49] LABS: Anion Gap 8 (5-15); BUN 22 mg/dL (7-18); BUN/Creat Ratio 17.2 RATIO (10-20); Calcium,Total 9.4 mg/dL (8.5-10.1); Chloride 98 mmol/L (98-107); Creatinine, Serum 1.28 mg/dL (0.55-1.02); EST Glomerular Filtration Rate 44 mL/min (>60); Est Glom Filt Rate - Afr Amer 53 mL/min (>60); Estimated Creatinine Clearance 59.31 ml/min; Glucose 200 mg/dL (74-106); Potassium 3.7 mmol/L (3.5-5.1); Sodium Level 135 mmol/L (136-145)
--- NOTE | 2024-01-20 18:50 | CT_ITS ---
EXAM: CT ABDOMEN AND PELVIS WITHOUT INTRAVENOUS CONTRAST CLINICAL INDICATION: Left flank pain TECHNIQUE: Helically acquired images were obtained of the abdomen and pelvis without intravenous contrast. This CT exam was performed using one or more of the following dose reduction techniques: automated exposure control, adjustment of the mA and/or kV according to patient size, and/or use of iterative reconstruction technique. RADIATION DOSE: CTDIvol = 23.59 mGy, DLP = 1226.06 mGy-cm COMPARISON: No relevant prior studies available. FINDINGS: LOWER THORAX: Unremarkable. Lung bases are grossly clear. No cardiomegaly. No significant pericardial effusion. ABDOMEN: LIVER: Fatty liver. Marked hepatomegaly. GALLBLADDER AND BILE DUCTS: Distended gallbladder. No wall thickening or stones. No intra- or extrahepatic biliary ductal dilation. PANCREAS: Unremarkable. No focal cystic mass. SPLEEN: Unremarkable. Normal size without focal cystic or solid mass. ADRENALS: Unremarkable. No nodules. KIDNEYS AND URETERS: Several stones are seen in the lower pole of the left kidney. Largest measures 1.4 cm. No obstructing stones. No hydronephrosis. Unremarkable right kidney. STOMACH AND BOWEL: Evaluation of the GI tract is limited by absence of oral contrast. Cannot exclude stomach wall thickening. No dilated loops of bowel or evidence for obstruction. Cannot exclude segmental thickening of the marroquin of the small or large bowel. Cannot exclude enteritis or colitis. Moderate to marked diffuse fecal retention. PELVIS: APPENDIX: No evidence of acute appendicitis. BLADDER: Unremarkable. REPRODUCTIVE: Absent uterus. ABDOMEN and PELVIS: INTRAPERITONEAL SPACE: Unremarkable. No ascites or other fluid collection. No free air. BONES/JOINTS: Degenerative changes of the spine. No suspicious lytic or blastic abnormality. SOFT TISSUES: Unremarkable. No discrete abdominal or pelvic wall hernia. VASCULATURE: Unremarkable. Abdominal aorta is non-dilated. LYMPH NODES: Unremarkable. No enlarged lymph nodes. CT/Abdomen/Pelvis without Cont IMPRESSION: 1. No acute abnormality. 2. Fatty liver and marked hepatomegaly. 3. Nonobstructing left renal stones. No hydronephrosis. 4. Moderate to marked diffuse fecal retention. Electronically Signed: Prashant Ruth MD at 19:59 EDT ,
--- NOTE | 2024-01-20 18:52 | EX.ED.DYSGE1 ---
HPI History of Present Illness Chief Complaint: Flank Pain Narrative Narrative: 68-year-old female past medical history of hypertension, prediabetes, atrial fibrillation on Eliquis presents with left flank pain that began suddenly at 10 AM today, almost 9 hours ago. She relates history that years remotely she passed kidney stones and this feels the same. Few days ago she had right-sided flank pain, took ibuprofen, went to bed and it went away. This morning at 10:00, it started on the left side. She denies any fevers or chills, no nausea or vomiting, no dysuria or hematuria, no dark urine. She is having left flank pain, took 3 doses of ibuprofen, but is having continued pain. No exacerbating or alleviating factors. [facility] Medical History Asthma Bronchitis Depression Essential hypertension Hypoxia Kidney disease PAF (paroxysmal atrial fibrillation) Rheumatoid arthritis Skin cancer Type 2 diabetes mellitus Home Medications albuterol sulfate 90 mcg/actuation aerosol inhaler 1 - 2 puff inhalation Q4H PRN PRN Sob &/Or Wheezing 03/25/15 [History Last Taken Unknown] citalopram 20 mg tablet 20 mg PO DAILY 03/25/15 [History Last Taken 09/17/20] hydrochlorothiazide 25 mg tablet 25 mg PO DAILY 03/25/15 [History Last Taken 09/17/20] hydroxyzine HCl 25 mg tablet 25 mg PO QHS 03/25/15 [History Last Taken 09/17/20] lisinopril 10 mg tablet 10 mg PO DAILY 03/25/15 [History Last Taken 09/17/20] fluocinonide 0.05 % topical cream 1 applic topical BID-QID PRN 10/04/20 [History Last Taken Unknown] multivitamin,jp-okwd-asimzezt (Complete Multivitamin tablet) 1 tab PO DAILY 10/04/20 [History Last Taken Unknown] vit C 50 mg-E 15 unit-zinc cit 4.5 mg-lutein 2.5 mg-zeaxan chew tablet ([employer]) 2 tab PO DAILY 10/04/20 [History Last Taken Unknown] clobetasol 0.05 % topical spray 1 applic topical BID PRN 12/27/21 [History Last Taken Unknown] lactobacillus combination no.9 4 billion cell capsule (Adult 50 Plus Probiotic) 4,000 mmu cells PO DAILY 12/27/21 [History Last Taken Unknown] fluticasone furoate 100 mcg/actuation blister powder for inhalation (Arnuity Ellipta) 1 inh inhalation DAILY #30 ea 10/02/22 [Rx Last Taken Unknown] glimepiride 2 mg tablet 2 mg PO BID 05/04/23 [History Last Taken Unknown] metformin 500 mg tablet,extended release 24 hr 500 mg PO .qid dm 05/04/23 [History Last Taken Unknown] apixaban 5 mg tablet (Eliquis) See Rx Instructions .Route .COMPLEX #180 tabs 06/05/23 [Rx Last Taken Unknown] diltiazem HCl 120 mg capsule,extended release 24 hr 120 mg PO DAILY #90 caps 08/06/23 [Rx Last Taken Unknown] cephalexin 500 mg capsule 500 mg PO BID #14 caps 01/20/24 [Rx Last Taken Unknown] Allergy/AdvReac Type Severity Reaction Status Date / Time house dust mite Allergy NEEDS Verified 01/20/24 17:49 FOLLOW-UP Family History Father Lymphoma Mother CAD (coronary artery disease) Hypertension Diabetes Surgical History H/O section History of knee replacement procedure of right knee History of left knee replacement History of total hysterectomy History of tympanoplasty of left ear Social History Smoking Status: Never smoker alcohol intake: current details: rare substance use type: does not use caffeine: Yes Type: coffee Number of servings: 1 ROS ROS ED ROS Narrative Constitutional: No fever, no chills. HEENT: No sore throat. No neck pain. No loss of vision. No rhinorrhea. Cardiovascular: No chest pain. No palpitations. No pedal edema. Respiratory: No cough, no shortness of breath. Abdominal: No abdominal pain. No nausea. No vomiting. Genitourinary: No dysuria. No hematuria. Positive left flank pain. Previous right flank pain-resolved. Musculoskeletal: No myalgias. No arthralgias. Neurologic: No headaches. No dizziness. No lightheadedness. Skin: No rash. No change in color. Psychiatric: No depression. No anxiety. EXAM Physical Exam Narrative Exam Narrative: Afebrile. Vital signs noted. HEENT: Normocephalic. Atraumatic. PERRL, EOMI. Neck soft and supple. No point tenderness or step off. Cardiovascular: Regular rate and rhythm. No murmurs, rubs, or gallops appreciated. Respiratory: No tachypnea. Lungs clear to auscultation bilaterally. Gastrointestinal: Abdomen soft, nontender, with normoactive bowel sounds. No rebound or guarding. No CVA tenderness to percussion. Neurological: Awake. Alert. Nonfocal, nonlateralizing. Skin: No rash. Normal color. No pallor. Musculoskeletal: No pedal edema. Full range of motion extremities. Const Vital Signs: 01/20/24 17:49 01/20/24 17:49 01/20/24 19:48 Temperature 98.6 F Temperature Source Temporal Pulse Rate 78 78 87 Respiratory Rate 16 18 18 Blood Pressure 149/66 H 149/66 H Blood Pressure Mean 93 93 Pulse Ox 95 95 97 Oxygen Delivery Method Room Air Room Air Room Air MDM MDM MDM Narrative Medical decision making narrative: In the differential diagnosis is ureterolithiasis versus pyelonephritis versus diverticulitis. I have low suspicion for diverticulitis based on her history and physical as she is not having problems with bowel movements, no reported diarrhea. Kidney stone workup was pursued per RN protocol. I reviewed her laboratory work she has slightly elevated white count of 14.1 with hemoglobin 14.0, hematocrit 43.0, platelet count normal at 263. Sodium slightly low at 135 with normal potassium of 3.7. BUN is elevated at 22 with a creatinine of 1.28. At this point in time, I added a CT of the abdomen pelvis as she was bolused normal saline along with administered morphine and ondansetron. I reviewed her laboratory work and she has a leukocytosis of 14.1, hemoglobin 14.0, hematocrit 43.0, platelet count normal at 263. She has a BUN of 22 and a creatinine of 1.28, slight elevation from baseline. Urinalysis shows 50-100 WBCs with increased RBCs. I reviewed the CT of the flank radiology report which shows no evidence of an obstructive stone, no hydronephrosis, no inflammation consistent with pyelonephritis. Given her UTI and flank pain, repeat examination after morphine and ondansetron shows she has improved. I do not feel she needs narcotics for home. She was started on Keflex here in the emergency department given her first dose and a prescription written for the next week. I feel she can be discharged safely home with follow-up to her primary care provider. Urine culture was also sent and is pending. She feels improved and well enough to go home. Return instructions reviewed. Disposition is discharged home in stable condition. History & Record Review Discussion w/independent historian: Patient Additional record(s) reviewed:: Prior labs Lab Data Attestation: I reviewed the patient's lab results. Labs: Laboratory Results - last 24 hr 01/20/24 01/20/24 18:20 20:01 WBC 14.1 H RBC 4.75 Hgb 14.0 Hct 43.0 MCV 90.5 MCH 29.5 MCHC 32.6 RDW Std Deviation 44.8 H RDW Coeff of Najma 13.4 Plt Count 263 MPV 10.6 Immature Gran % (Auto) 0.600 Neut % (Auto) 83.3 H Lymph % (Auto) 4.3 L Crisp % (Auto) 10.9 H Eos % (Auto) 0.5 Baso % (Auto) 0.4 Absolute Neuts (auto) 11.7 H Absolute Lymphs (auto) 0.60 L Nucleated RBC % 0 Differential Comment SCANNED Diff Path Review May foll Sodium 135 L Potassium 3.7 Chloride 98 Carbon Dioxide 29.0 Anion Gap 8 BUN 22 H Creatinine 1.28 H Estim Creat Clear Calc 59.31 Est GFR (MDRD) Af Amer 53 L Est GFR (MDRD) Non-Af 44 L BUN/Creatinine Ratio 17.2 Glucose 200 H Calcium 9.4 Urine Color Yellow Urine Clarity Clear Urine pH 6.0 Ur Specific [place] 1.010 Urine Protein 15 H Urine Glucose (UA) Normal Urine Ketones Negative Urine Occult Blood 250 H Urine Nitrite Positive H Urine Bilirubin Negative Urine Urobilinogen Normal Ur Leukocyte Esterase 500 H Urine RBC 5-10 SEEN Urine WBC 50-100 SEEN Ur Squamous Epith Cells 0 SEEN Urine Bacteria 2+ Urine Mucus 0 SEEN Radiography Diagnostic Testing: Clinical Impression(s) from Imaging Studies Abdomen/Pelvis CT 01/20/24 18:50 IMPRESSION: 1. No acute abnormality. 2. Fatty liver and marked hepatomegaly. 3. Nonobstructing left renal stones. No hydronephrosis. 4. Moderate to marked diffuse fecal retention. Electronically Signed: Prashant Ruth MD at 19:59 EDT , Discharge Plan Triage Chief Complaint: Flank Pain ED Provider: Bunny Burr Dx/Rx/DC Orders Clinical Impression: UTI (urinary tract infection), Left flank pain Instructions: Urinary Tract Infections in Women, ED Flank Pain, Uncertain Cause Prescriptions: New cephalexin 500 mg capsule 500 mg PO BID Qty: 14 0RF No Action multivitamin,bc-xcan-ruzpyisi tablet 1 tab PO DAILY Ocuvite Eye Health 50 mg-15 unit- 4.5 mg-2.5 mg tablet,chewable 2 tab PO DAILY fluocinonide 0.05 % cream 1 applic TOPICAL BID-QID PRN clobetasol 0.05 % spray,non-aerosol 1 applic topical BID PRN Rx Instructions: not to exceed 26 sprays per single application Adult 50 Plus Probiotic 4 billion cell capsule 4,000 mmu cells PO DAILY Rx Instructions: administer with a meal glimepiride 2 mg tablet 2 mg PO BID hydroxyzine HCl 25 MG tablet 25 mg PO QHS citalopram 20 MG tablet 20 mg PO DAILY hydrochlorothiazide 25 MG tablet 25 mg PO DAILY albuterol sulfate 1 PUFF inhaler 1 - 2 puff INHALATION Q4H PRN PRN (Reason: Sob &/Or Wheezing) lisinopril 10 MG tablet 10 mg PO DAILY metformin 500 mg tablet extended release 24 hr 500 mg PO .qid Arnuity Ellipta 100 mcg/actuation blister with device 1 inh inhalation DAILY Qty: 30 6RF Eliquis 5 mg tablet See Rx Instructions .ROUTE .COMPLEX Qty: 180 0RF Dose Instruction: TAKE 1 TABLET BY MOUTH TWICE DAILY Rx Instructions: TAKE 1 TABLET BY MOUTH TWICE DAILY diltiazem HCl 120 mg capsule,extended release 24hr 120 mg PO DAILY Qty: 90 3RF Primary Care Provider: Jed Euceda Referrals: Jed Euceda MD [Primary Care Provider] - 3-5 Days if not improving Activity Restrictions/Additional Instructions: Medication/antibiotic as directed. Return with fever, increased pain, new or worsening symptoms. Disposition Disposition: Home, Self Care
[2024-01-20] MEDS: Morphine 4 MG/ML Syringe IV (19:04)
[2024-01-20] MEDS: 0.9% Normal Saline (1000mL) 1,000 ML 999 ML IV (19:04)
[2024-01-20] MEDS: Ondansetron 4 MG/2 ML Vial IV (19:04)
[2024-01-20 19:22] LABS: Differential Comment SCANNED
[2024-01-20 19:48] VITALS: PULSE 87; RESP 18; O2SAT 97
[2024-01-20 20:10] LABS: Mucous, Urine 0 SEEN /hpf (<or=2+); Squamous Epithelial Cells - UA 0 SEEN /hpf (5-10)
[2024-01-20 20:22] LABS: Color, Urine Yellow (Yellow); Glucose, Dipstick Normal (Normal); Ketone-Dipstick Negative (Negative); Leukocyte Esterase-Dipstick 500 /ul (Negative); Nitrite-Dipstick Positive (Negative); Occult Blood-Urine 250 /ul (Negative); Protein-Dipstick 15 mg/dl (Negative); Urine Bilirubin Dipstick Negative (Negative); Urine Clarity Clear (Clear); Urine Urobilinogen Normal (Normal)
[2024-01-20 20:32] LABS: Bacteria 2+ /hpf (None Seen); Red Blood Cells-Urine 5-10 SEEN /hpf (0-5); White Blood Cells 50-100 SEEN /hpf (0-5)
[2024-01-20] MEDS: Cephalexin 250 MG Capsule 500 MG PO (21:06)
[2024-01-20 21:23] VITALS: BP 138/74; PULSE 87; RESP 18; TEMP 36.7; O2SAT 97
[2024-01-21 13:27] LABS: Pathologist Review Reviewed
== END 2024-01-20 21:00 | disposition home or self-care (01) ==
PROVIDERS: Emergency Provider Emergency Medicine; PCP Family Medicine; Visit Provider Emergency Medicine
DX: N39.0 Urinary tract infection, site not specified (principal); I48.0 Paroxysmal atrial fibrillation; E11.9 Type 2 diabetes mellitus without complications; I10 Essential (primary) hypertension; Z79.01 Long term (current) use of anticoagulants; J45.909 Unspecified asthma, uncomplicated; R10.9 Unspecified abdominal pain
CPT/HCPCS: 74176; 80048; 81001; 85025; 87077; 87086; 87088; 87186; 96361; 96374; 96375; 99283; J7030; A4216; J2405